=== PATIENT | male | born 1950 | race African-American/Black ===

== ENCOUNTER 2017-10-31 08:43 | Emergency (ER) | payer MEDICARE ==
[2017-10-31 09:25] LABS: ADD MAN DIFF? NO
[2017-10-31 09:32] LABS: BASO % 0 % (0-3); EOS # 0.1 x10^3/uL (0.0-0.7); EOS % 2 % (0-3); HEMATOCRIT 32.6 % (39.0-53.0); HEMOGLOBIN 10.9 g/dL (13.0-17.5); LYMPH # 1.1 x10^3/uL (1.0-4.8); LYMPH % 18 % (24-48); MEAN CORPUSCULAR HEMOGLOBIN 27 pg (25-35); MEAN CORPUSCULAR HGB CONC 33 g/dL (31-37); MEAN CORPUSCULAR VOLUME 81 fL (79-100); MONO # 0.5 x10^3/uL (0.0-1.1); MONO % 9 % (0-9); NEUT # 4.1 x10^3uL (1.8-7.7); NEUT % 71 % (31-73); PLATELET COUNT 345 x10^3/uL (140-400); RED BLOOD COUNT 4.02 x10^6/uL (4.30-5.70); WHITE BLOOD COUNT 5.8 x10^3/uL (4.0-11.0)
[2017-10-31 09:45] LABS: ALBUMIN 3.3 g/dL (3.4-5.0); ALBUMIN/GLOBULIN RATIO 0.9 (1.0-1.7); ALK PHOS 55 U/L (46-116); ALT (SGPT) 22 U/L (16-63); ANION GAP 8 (6-14); AST (SGOT) 21 U/L (15-37); BLOOD UREA NITROGEN 8 mg/dL (8-26); BUN/CREATININE RATIO 7 (6-20); CALCIUM 8.9 mg/dL (8.5-10.1); CARBON DIOXIDE 31 mmol/L (21-32); CHLORIDE 103 mmol/L (98-107); CREATININE 1.1 mg/dL (0.7-1.3); GFR 80.5; GLUCOSE 227 mg/dL (70-99); SODIUM 142 mmol/L (136-145); TOTAL BILIRUBIN 0.3 mg/dL (0.2-1.0); TOTAL PROTEIN 6.9 g/dL (6.4-8.2)
[2017-10-31 09:46] LABS: TROPONINI < 0.017 ng/mL (0.000-0.055)
[2017-10-31 09:50] LABS: POTASSIUM 2.7 mmol/L (3.5-5.1)
[2017-10-31] MEDS: POTASSIUM CHLORIDE 20 MEQ TABLET.ER. PO ×2 (10:28)
== END 2017-10-31 12:47 | disposition home or self-care (01) ==
LOC: ER 08:43
DX: I10 Essential (primary) hypertension (principal); E87.6 Hypokalemia; R94.31 Abnormal electrocardiogram [ECG] [EKG]; E11.9 Type 2 diabetes mellitus without complications; F20.9 Schizophrenia, unspecified
CPT/HCPCS: 36415; 71045; 80053; 84484; 85025; 93005; 99285-25

== ENCOUNTER 2019-10-04 17:32 | Inpatient (IN) | payer MEDICARE, OTHER ==
[~2019-10-04] VITALS: Ht 170.2 cm; Wt 84.4 kg
[2019-10-04] MEDS: IV NORMAL SALINE 1000ML BAG 1,000 ML IV SCH (01:45)
[~2019-10-04 17:32] MED LIST: ACET325T9 PO; AMLO5TAB4 PO; AZIT250T6 PO; BENZ1TAB5 PO; CHOL500016 PO; CHOL500050 PO; GABA300C18 PO; GLIM1TAB PO; HALO10TA PO; HALO2ORA9 PO; HYDR-2868 PO; HYDR12.58 PO; IPRA3AMP29 NEB; LEVO500T59 PO; LINA5TAB PO; LISI20TA PO; MAGN2400 PO; METF10007 PO; NICO1PAT25 TP; NIFE60TA14 PO; OLAN20TA3 PO; POTASSIUM CHLO10 ME1 PO; TRAZ150T49 PO
[2019-10-04] MEDS ORDERED: ONDANSETRON PF 4 MG/2 ML VIAL. IVP ONE (18:15)
[2019-10-04] MEDS ORDERED: IV NORMAL SALINE 1000ML BAG 1,000 ML IV ONE (18:15)
--- NOTE | 2019-10-04 18:53 | PHYS DOC ---
Past Medical History Past Medical History: Constipation, Diabetes-Type II, Hypertension, Schizophrenia, Other Additional Past Medical Histor: INSOMNIA,VIT DEF,EXTRAPYRAMIDAL MOVEMENT,HYPOKALEMIA Past Surgical History: Other Additional Past Surgical Histo: UNKNOWN Additional Information: 0.5 PPD Alcohol Use: None Drug Use: None Adult General Chief Complaint Chief Complaint: NEURO SYMPTOMS/DEFICITS HPI HPI Patient is a 68 year old [facility] patient who presents with reports of right facial droop this morning which resolved and then later this afternoon upon waking from sleep. Patient was reported initially be drooling with facial droop while sleeping per [facility] staff. Patient alert and oriented and oriented without facial droop or complaints extremity weakness or loss of sensation on ED arrival. Denies Patient reports nausea vomiting and diarrhea. Hematemesis coffee-ground emesis. No blood in stools dark tarry stools. No other acute symptoms or complaints.[] Review of Systems Review of Systems ROS as per HPI All other systems were reviewed and found to be within normal limits, except as documented in this note. Current Medications Current Medications Current Medications Medications (Trade) Dose Ordered Sig/Andrés Start Time Stop Time Status Last Admin Dose Admin Ondansetron HCl (Zofran) 4 mg 1X ONCE 10/04/19 18:15 10/04/19 18:24 DC 10/04/19 18:40 4 MG Sodium Chloride 1,000 ml @ 1,000 mls/hr 1X ONCE 10/04/19 18:15 10/04/19 19:14 DC 10/04/19 18:39 1,000 MLS/HR Allergies Allergies Allergies Coded Allergies Type Severity Reaction Last Updated Verified lithium Allergy Intermediate 02/10/19 Yes Physical Exam Physical Exam Constitutional: Postictal/sedated, responds to tactile stimulation. [] HENT: Normocephalic, atraumatic, no acute deficits bilateral external ears no rmal, oropharynx moist, nose normal. [] Eyes: PERRLA, EOMI.. [] Neck: Normal range of motion, no tenderness, supple. [] Cardiovascular:Heart rate regular rhythm, no murmur [] Lungs & Thorax: Bilateral breath sounds clear to auscultation [] Abdomen: Bowel sounds normal, soft. [] Skin: Warm, dry, no erythema, no rash. [] Extremities: No tenderness, no edema. [] Neurologic: Unresponsive, localizes pain. [] Psychologic: Affect normal, judgement normal, mood normal. [] Current Patient Data Vital Signs Vital Signs Date Time Temp Pulse Resp B/P (MAP) Pulse Ox O2 Delivery O2 Flow Rate FiO2 10/04/19 19:01 98 16 96 10/04/19 17:32 98.5 157/74 (101) Room Air 98.5 Lab Values Laboratory Tests Test 10/04/19 14:35 10/04/19 18:55 Influenza Type A Antigen Negative (NEGATIVE) Influenza Type B Antigen Negative (NEGATIVE) White Blood Count 7.2 x10^3/uL (4.0-11.0) Red Blood Count 4.34 x10^6/uL (4.30-5.70) Hemoglobin 11.8 g/dL (13.0-17.5) L Hematocrit 35.8 % (39.0-53.0) L Mean Corpuscular Volume 83 fL (79-100) Mean Corpuscular Hemoglobin 27 pg (25-35) Mean Corpuscular Hemoglobin Concent 33 g/dL (31-37) Red Cell Distribution Width 14.0 % (11.5-14.5) Platelet Count 252 x10^3/uL (140-400) Neutrophils (%) (Auto) 86 % (31-73) H Lymphocytes (%) (Auto) 4 % (24-48) L Monocytes (%) (Auto) 8 % (0-9) Eosinophils (%) (Auto) 2 % (0-3) Basophils (%) (Auto) 0 % (0-3) Neutrophils # (Auto) 6.2 x10^3/uL (1.8-7.7) Lymphocytes # (Auto) 0.3 x10^3/uL (1.0-4.8) L Monocytes # (Auto) 0.6 x10^3/uL (0.0-1.1) Eosinophils # (Auto) 0.1 x10^3/uL (0.0-0.7) Basophils # (Auto) 0.0 x10^3/uL (0.0-0.2) Segmented Neutrophils % 46 % (35-66) Band Neutrophils % 35 % (0-9) H Lymphocytes % 6 % (24-48) L Monocytes % 11 % (0-10) H Eosinophils % 2 % (0-5) Dohle Bodies Present Platelet Estimate Adequate (ADEQUATE) Sodium Level 142 mmol/L (136-145) Potassium Level 3.6 mmol/L (3.5-5.1) Chloride Level 103 mmol/L (98-107) Carbon Dioxide Level 24 mmol/L (21-32) Anion Gap 15 (6-14) H Blood Urea Nitrogen 41 mg/dL (8-26) H Creatinine 3.4 mg/dL (0.7-1.3) H Estimated GFR (Cockcroft-Gault) 21.8 BUN/Creatinine Ratio 12 (6-20) Glucose Level 217 mg/dL (70-99) H Lactic Acid Level 2.6 mmol/L (0.4-2.0) H Calcium Level 8.7 mg/dL (8.5-10.1) Total Bilirubin 0.3 mg/dL (0.2-1.0) Aspartate Amino Transferase (AST) 7 U/L (15-37) L Alanine Aminotransferase (ALT) 13 U/L (16-63) L Alkaline Phosphatase 96 U/L (46-116) Troponin I Quantitative < 0.017 ng/mL (0.000-0.055) Total Protein 7.0 g/dL (6.4-8.2) Albumin 3.3 g/dL (3.4-5.0) L Albumin/Globulin Ratio 0.9 (1.0-1.7) L Lipase 60 U/L (73-393) L Laboratory Tests 10/04/19 18:55 Laboratory Tests 10/04/19 18:55 EKG EKG [EKG: reviewed] Radiology/Procedures Radiology/Procedures [: Course & Med Decision Making Course & Med Decision Making Pertinent Labs and Imaging studies reviewed. (See chart for details) [Nausea vomiting diarrhea with acute kidney injury. IV fluids given. Will admit to the hospital service with anticipated nephrology consult.] Dragon Disclaimer Dragon Disclaimer This electronic medical record was generated, in whole or in part, using a voice recognition dictation system. Departure Departure Impression: Primary Impression: Acute kidney injury Additional Impression: Nausea & vomiting Disposition: ADMITTED INPATIENT Condition: IMPROVED Referrals: DEEDEE DOZIER (PCP) Problem Qualifiers CAITLIN KELLER DO Oct 04, 2019 18:53
[2019-10-04 19:03] LABS: BASO % 0 % (0-3); EOS # 0.1 x10^3/uL (0.0-0.7); EOS % 2 % (0-3); HEMATOCRIT 35.8 % (39.0-53.0); HEMOGLOBIN 11.8 g/dL (13.0-17.5); LYMPH # 0.3 x10^3/uL (1.0-4.8); LYMPH % 4 % (24-48); MEAN CORPUSCULAR HEMOGLOBIN 27 pg (25-35); MEAN CORPUSCULAR HGB CONC 33 g/dL (31-37); MEAN CORPUSCULAR VOLUME 83 fL (79-100); MONO # 0.6 x10^3/uL (0.0-1.1); MONO % 8 % (0-9); NEUT # 6.2 x10^3/uL (1.8-7.7); NEUT % 86 % (31-73); PLATELET COUNT 252 x10^3/uL (140-400); RED BLOOD COUNT 4.34 x10^6/uL (4.30-5.70); WHITE BLOOD COUNT 7.2 x10^3/uL (4.0-11.0)
[2019-10-04 19:25] LABS: PLT ESTIMATE ADEQUATE (ADEQUATE)
[2019-10-04 19:26] LABS: % BANDS 35 % (0-9); % EOS 2 % (0-5); % LYMPHS 6 % (24-48); % MONOS 11 % (0-10); % SEGS 46 % (35-66); ALBUMIN 3.3 g/dL (3.4-5.0); ALBUMIN/GLOBULIN RATIO 0.9 (1.0-1.7); CALCIUM 8.7 mg/dL (8.5-10.1); CREATININE 3.4 mg/dL (0.7-1.3); GFR 21.8; POTASSIUM 3.6 mmol/L (3.5-5.1); TOTAL BILIRUBIN 0.3 mg/dL (0.2-1.0)
[2019-10-04 19:58] LABS: INFLUENZA A PATIENT NEGATIVE (NEGATIVE); INFLUENZA B PATIENT NEGATIVE (NEGATIVE)
[2019-10-04 20:35] VITALS: BP 146/73
[2019-10-04] MEDS ORDERED: ACETAMINOPHEN 500 MG TABLET PO PRN (20:45)
[2019-10-04] MEDS ORDERED: cloNIDine HCL 0.1 MG TABLET PO PRN (20:45)
[2019-10-04] MEDS ORDERED: CALCIUM CARBONATE 500 MG TAB.CHEW PO PRN (20:45)
[2019-10-04] MEDS ORDERED: ACETAMINOPHEN/CODEINE 300/30MG TABLET. PO PRN (20:45)
[2019-10-04] MEDS ORDERED: ACETAMINOPHEN 325 MG TABLET. PO PRN (20:45)
[2019-10-04] MEDS ORDERED: ONDANSETRON PF 4 MG/2 ML VIAL. IVP PRN (20:45)
[2019-10-04] MEDS: traZODone 50 MG TABLET. PO SCH (21:00)
[2019-10-04] MEDS: hydrALAZINE 25 MG TABLET PO SCH (21:00)
[2019-10-04] MEDS: OLANZapine 5 MG TABLET PO SCH (21:00)
[2019-10-04] MEDS: HALOPERIDOL 2 MG/ML ORAL.CONC. PO SCH (21:00)
[2019-10-04] MEDS: IPRATRPIUM/ALBUTEROL 0.5/2.5MG 3 ML NEBU. NEB SCH (21:00)
[2019-10-04] MEDS: GABAPENTIN 300 MG CAPSULE. PO SCH (21:00)
[2019-10-04] MEDS: BENZTROPINE MESYLATE 1 MG TABLET. PO SCH (21:00)
[2019-10-04 23:00] VITALS: BP 118/55
--- NOTE | 2019-10-05 01:46 | NUR ---
Patient admitted to floor from the Emergency Department, report received from Cash SEN, ED. Patient arrived to unit by himself. Patient currently has zero reports of pain at this time. Patient orientated to room and unit, his bed was placed in the lowest position and locked, call light is within reach. 2100 medications non-administered at this time. Medications are currently 5 hours past due. This RN will continue to monitor the patient at this time.
[2019-10-05 03:00] VITALS: BP 117/50
[2019-10-05 05:21] LABS: CALCIUM 8.3 mg/dL (8.5-10.1); CREATININE 3.1 mg/dL (0.7-1.3); GFR 24.3; POTASSIUM 3.4 mmol/L (3.5-5.1)
--- NOTE | 2019-10-05 06:17 | EKG ---
[facility] [address] [place] [address] Test Date: 2019-10-04 Test Time: 17:39:38 Pat Name: PAWAN SONG Department: Room: Gender: M Conservation Agent: : [id number] Requested By: CAITLIN KELLER Order Number: [id number] Reading MD: Measurements Intervals [place] Rate: 99 P: -90 IN: 142 QRS: -49 QRSD: 84 T: 26 QT: 288 QTc: 374 Interpretive Statements SINUS RHYTHM LEFT ATRIAL ABNORMALITY ABNORMAL LEFT AXIS DEVIATION LEFT ANTERIOR FASCICULAR BLOCK NON SPECIFIC T ABNORMALITY ABNORMAL ECG No previous ECG available for comparison
[2019-10-05 07:00] VITALS: BP 142/72
[2019-10-05] MEDS: IPRATRPIUM/ALBUTEROL 0.5/2.5MG 3 ML NEBU. NEB SCH ×5 (08:17→22:00)
[2019-10-05] MEDS ORDERED: NON FORMULARY ITEM (Nifedipine (Nifedipine Er) 60 MG) PO SCH (09:00)
[2019-10-05] MEDS: BENZTROPINE MESYLATE 1 MG TABLET. PO SCH ×2 (09:03→21:00)
[2019-10-05] MEDS: hydrALAZINE 25 MG TABLET PO SCH ×3 (09:03→21:00)
[2019-10-05] MEDS: LISINOPRIL 20 MG TABLET PO SCH (09:04)
[2019-10-05] MEDS: POTASSIUM CHLORIDE 20 MEQ TABLET.ER. PO SCH (09:04)
[2019-10-05] MEDS: hydroCHLOROthiazide 12.5 MG CAPSULE PO SCH (09:04)
[2019-10-05] MEDS: GABAPENTIN 300 MG CAPSULE. PO SCH ×2 (09:04→21:00)
[2019-10-05] MEDS: HALOPERIDOL 2 MG/ML ORAL.CONC. PO SCH ×2 (09:04→21:00)
[2019-10-05] MEDS: NICOTINE 14MG PATCH. TD SCH (09:07)
[2019-10-05] MEDS: amLODIPine BESYLATE 5 MG TABLET PO SCH (09:07)
--- NOTE | 2019-10-05 10:20 | PDOC1 ---
History and Physical Date of Admission Date of Admission DATE: 10/05/19 TIME: 10:20 Identification/Chief Complaint Chief Complaint seen in er 10/04 , 68 year old half-way patient who presents with reports of right facial droop this morning which resolved and then later 10/04 upon waking from sleep. Patient was reported initially be drooling with facial droop while sleeping per half-way staff. Patient alert and oriented and oriented without facial droop or complaints extremity weakness or loss of sensation on ED arrival. Denies Patient reports nausea vomiting and diarrhea. reported Hematemesis coffee-ground emesis. but pt unaware of this, poor historian Past Medical History Past Medical History Past Medical History Past Medical History Past Medical History: Constipation, Diabetes-Type II, Hypertension, Schizophrenia, Other Additional Past Medical Histor: INSOMNIA,VIT DEF,EXTRAPYRAMIDAL MOVEMENT,HYPOKALEMIA Past Surgical History: Other Additional Past Surgical Histo: UNKNOWN Additional Information: 0.5 PPD Alcohol Use: None Drug Use: None fhx htn Cardiovascular: HTN Pulmonary: No pertinent hx CENTRAL NERVOUS SYSTEM: Other GI: No pertinent hx Heme/Onc: No pertinent hx Hepatobiliary: No pertinent hx Psych: Psychosis, Schizophrenia Rheumatologic: No pertinent hx Infectious disease: No pertinent hx Renal/: No pertinent hx Endocrine: Diabetes Past Surgical History Past Surgical History: No pertinent history Family History Family History: Hepatitis, High Cholestrol, Hypertension, Family History Unknown Social History Smoke: <1 pack per day ALCOHOL: none Drugs: None Current Problem List Problem List Problems Medical Problems: (1) Acute kidney injury Status: Acute (2) Nausea & vomiting Status: Acute Current Medications Current Medications Current Medications Sodium Chloride 1,000 ml @ 1,000 mls/hr 1X ONCE IV Last administered on 10/04/19at 18:39; Start 10/04/19 at 18:15; Stop 10/04/19 at 19:14; Status DC Ondansetron HCl (Zofran) 4 mg 1X ONCE IVP Last administered on 10/04/19at 18:40; Start 10/04/19 at 18:15; Stop 10/04/19 at 18:24; Status DC Acetaminophen (Tylenol) 500 mg PRN Q6HRS PRN PO MILD PAIN / TEMP; Start 10/04/19 at 20:45; Status UNV Acetaminophen/ Codeine Phosphate (Tylenol #3) 1 tab PRN Q6HRS PRN PO MODERATE - SEVERE PAIN; Start 10/04/19 at 20:45 Clonidine HCl (Catapres) 0.1 mg PRN Q1HR PRN PO HYPERTENSION; Start 10/04/19 at 20:45 Calcium Carbonate/ Glycine (Tums) 500 mg PRN AFTMEALHC PRN PO INDIGESTION; Start 10/04/19 at 20:45 Ondansetron HCl (Zofran) 4 mg PRN Q6HRS PRN IVP NAUSEA/VOMITING; Start 10/04/19 at 20:45 Sodium Chloride 1,000 ml @ 100 mls/hr Q10H IV Last administered on 10/04/19at 01:45; Start 10/04/19 at 20:45 Acetaminophen (Tylenol) 650 mg PRN Q6HRS PRN PO MILD PAIN / TEMP; Start 10/04/19 at 20:45 Amlodipine Besylate (Norvasc) 5 mg DAILY PO Last administered on 10/05/19at 09:07; Start 10/05/19 at 09:00 Benztropine Mesylate (Cogentin) 1 mg BID PO Last administered on 10/05/19at 09:03; Start 10/04/19 at 21:00 Gabapentin (Neurontin) 300 mg BID PO Last administered on 10/05/19at 09:04; Start 10/04/19 at 21:00 Haloperidol Lactate (HALDOL 2mg ORAL CONC) 7.5 mg BID PO Last administered on 10/05/19at 09:04; Start 10/04/19 at 21:00 Hydralazine HCl (Apresoline) 25 mg TID PO Last administered on 10/05/19at 09:03; Start 10/04/19 at 21:00 Albuterol/ Ipratropium (Duoneb) 3 ml RTQID NEB Last administered on 10/05/19at 08:17; Start 10/04/19 at 21:00 Lisinopril (Prinivil) 60 mg DAILY PO Last administered on 10/05/19at 09:04; Start 10/05/19 at 09:00 Nicotine (Nicoderm Cq 14mg) 1 patch DAILY TD Last administered on 10/05/19at 09:07; Start 10/05/19 at 09:00 Ergocalciferol (Vitamin D2) 50,000 unit WEEKLY PO ; Start 10/11/19 at 09:00 Hydrochlorothiazide (Microzide) 12.5 mg DAILY PO Last administered on 10/05/19at 09:04; Start 10/05/19 at 09:00 Non-Formulary Medication (Nifedipine (Nifedipine Er)) 60 mg DAILY PO ; Start 10/05/19 at 09:00; Status UNV Olanzapine (ZyPREXA) 20 mg QHS PO ; Start 10/04/19 at 21:00 Potassium Chloride (Klor-Con) 20 meq DAILYWBKFT PO Last administered on 10/05/19at 09:04; Start 10/05/19 at 08:00 Trazodone HCl (Desyrel) 150 mg QHS PO ; Start 10/04/19 at 21:00 Active Scripts Active Levaquin (Levofloxacin) 500 Mg Tablet 1 Tab PO DAILY Azithromycin Tablet (Azithromycin) 250 Mg Tablet 250 Mg PO HS Duoneb 0.5-3(2.5) Mg/3 Ml (Albuterol/Ipratropium) 3 Ml Ampul.neb 3 Ml NEB RTQID Reported Vitamin D3 (Cholecalciferol (Vitamin D3)) 50,000 Unit Capsule 50,000 Unit PO WEEKLY Tylenol (Acetaminophen) 325 Mg Tablet 650 Mg PO PRN Q6HRS PRN NICODERM CQ 14mg (Nicotine) 1 Each Patch.td24 1 Patch TP DAILY Gabapentin (Gabapentin) 300 Mg Capsule 300 Mg PO BID Haloperidol Lactate 2 Mg/1 Ml Oral.conc 7.5 Mg PO BID Zyprexa (Olanzapine) 20 Mg Tablet 1 Tab PO QHS Trazodone Hcl 150 Mg Tablet 1 Tab PO QHS Potassium Chloride 10 Meq Tablet.er 20 Meq PO DAILY Norvasc (Amlodipine Besylate) 5 Mg Tablet 5 Mg PO DAILY Nifedipine Er (Nifedipine) 60 Mg Tablet.er 60 Mg PO DAILY Milk Of Magnesia (Magnesium Hydroxide) 2,400 Mg/10 Ml Oral.susp 1,200 Mg PO PRN DAILY PRN Prinivil (Lisinopril) 20 Mg Tablet 60 Mg PO DAILY Hydrochlorothiazide Tablet (Hydrochlorothiazide) 12.5 Mg Tablet 12.5 Mg PO DAILY Hydralazine Hcl 25 Mg Tablet 25 Mg PO TID Benztropine Mesylate 1 Mg Tablet 1 Mg PO BID Allergies Allergies: Coded Allergies: lithium (Verified Allergy, Intermediate, 02/10/19) ROS Review of System Review of Systems Review of Systems ROS as per HPI 14 pt systems were reviewed and found to be within normal limits, except as documented General: YES: Fatigue Gastrointestinal: Yes Nausea, Yes Vomiting Musculoskeletal: Yes Joint Stiffness Physical Exam Physical Exam Physical Exam Physical Exam Constitutional: [] HENT: Normocephalic, atraumatic, no acute deficits bilateral external ears normal, oropharynx moist, nose normal. [] Eyes: PERRLA, EOMI.. [] Neck: Normal range of motion, no tenderness, supple. [] Cardiovascular:Heart rate regular rhythm, no murmur [] Lungs & Thorax: Bilateral breath sounds clear to auscultation [] Abdomen: Bowel sounds normal, soft. [] Skin: Warm, dry, no erythema, no rash. [] Extremities: No tenderness, no edema. [] Neurologic: Unresponsive, localizes pain. [] Psychologic: Affect normal, judgment normal, mood normal. [] General: Cooperative, No acute distress HEENT: Atraumatic Breasts: Not examined Abdomen: Normal bowel sounds, Soft, No tenderness Rectal Exam: not examined PELVIC: Exam declined by patient, Examination not indicated Extremities: No clubbing, No cyanosis Vitals Vitals Vital Signs Date Time Temp Pulse Resp B/P (MAP) Pulse Ox O2 Delivery O2 Flow Rate FiO2 10/05/19 09:07 98 142/72 10/05/19 08:19 93 Room Air 10/05/19 07:00 98.3 16 98.3 Labs Labs Laboratory Tests Test 10/04/19 14:35 10/04/19 18:55 10/04/19 21:55 10/05/19 03:50 Influenza Type A Antigen Negative (NEGATIVE) Influenza Type B Antigen Negative (NEGATIVE) White Blood Count 7.2 x10^3/uL (4.0-11.0) Red Blood Count 4.34 x10^6/uL (4.30-5.70) Hemoglobin 11.8 g/dL (13.0-17.5) Hematocrit 35.8 % (39.0-53.0) Mean Corpuscular Volume 83 fL (79-100) Mean Corpuscular Hemoglobin 27 pg (25-35) Mean Corpuscular Hemoglobin Concent 33 g/dL (31-37) Red Cell Distribution Width 14.0 % (11.5-14.5) Platelet Count 252 x10^3/uL (140-400) Neutrophils (%) (Auto) 86 % (31-73) Lymphocytes (%) (Auto) 4 % (24-48) Monocytes (%) (Auto) 8 % (0-9) Eosinophils (%) (Auto) 2 % (0-3) Basophils (%) (Auto) 0 % (0-3) Neutrophils # (Auto) 6.2 x10^3/uL (1.8-7.7) Lymphocytes # (Auto) 0.3 x10^3/uL (1.0-4.8) Monocytes # (Auto) 0.6 x10^3/uL (0.0-1.1) Eosinophils # (Auto) 0.1 x10^3/uL (0.0-0.7) Basophils # (Auto) 0.0 x10^3/uL (0.0-0.2) Segmented Neutrophils % 46 % (35-66) Band Neutrophils % 35 % (0-9) Lymphocytes % 6 % (24-48) Monocytes % 11 % (0-10) Eosinophils % 2 % (0-5) Dohle Bodies Present Platelet Estimate Adequate (ADEQUATE) Sodium Level 142 mmol/L (136-145) 143 mmol/L (136-145) Potassium Level 3.6 mmol/L (3.5-5.1) 3.4 mmol/L (3.5-5.1) Chloride Level 103 mmol/L (98-107) 108 mmol/L (98-107) Carbon Dioxide Level 24 mmol/L (21-32) 23 mmol/L (21-32) Anion Gap 15 (6-14) 12 (6-14) Blood Urea Nitrogen 41 mg/dL (8-26) 39 mg/dL (8-26) Creatinine 3.4 mg/dL (0.7-1.3) 3.1 mg/dL (0.7-1.3) Estimated GFR (Cockcroft-Gault) 21.8 24.3 BUN/Creatinine Ratio 12 (6-20) Glucose Level 217 mg/dL (70-99) 120 mg/dL (70-99) Lactic Acid Level 2.6 mmol/L (0.4-2.0) 2.0 mmol/L (0.4-2.0) 1.1 mmol/L (0.4-2.0) Calcium Level 8.7 mg/dL (8.5-10.1) 8.3 mg/dL (8.5-10.1) Total Bilirubin 0.3 mg/dL (0.2-1.0) Aspartate Amino Transf (AST/SGOT) 7 U/L (15-37) Alanine Aminotransferase (ALT/SGPT) 13 U/L (16-63) Alkaline Phosphatase 96 U/L (46-116) Troponin I Quantitative < 0.017 ng/mL (0.000-0.055) Total Protein 7.0 g/dL (6.4-8.2) Albumin 3.3 g/dL (3.4-5.0) Albumin/Globulin Ratio 0.9 (1.0-1.7) Lipase 60 U/L (73-393) Laboratory Tests Test 10/04/19 14:35 10/04/19 18:55 10/04/19 21:55 10/05/19 03:50 Influenza Type A Antigen Negative (NEGATIVE) Influenza Type B Antigen Negative (NEGATIVE) White Blood Count 7.2 x10^3/uL (4.0-11.0) Red Blood Count 4.34 x10^6/uL (4.30-5.70) Hemoglobin 11.8 g/dL (13.0-17.5) Hematocrit 35.8 % (39.0-53.0) Mean Corpuscular Volume 83 fL (79-100) Mean Corpuscular Hemoglobin 27 pg (25-35) Mean Corpuscular Hemoglobin Concent 33 g/dL (31-37) Red Cell Distribution Width 14.0 % (11.5-14.5) Platelet Count 252 x10^3/uL (140-400) Neutrophils (%) (Auto) 86 % (31-73) Lymphocytes (%) (Auto) 4 % (24-48) Monocytes (%) (Auto) 8 % (0-9) Eosinophils (%) (Auto) 2 % (0-3) Basophils (%) (Auto) 0 % (0-3) Neutrophils # (Auto) 6.2 x10^3/uL (1.8-7.7) Lymphocytes # (Auto) 0.3 x10^3/uL (1.0-4.8) Monocytes # (Auto) 0.6 x10^3/uL (0.0-1.1) Eosinophils # (Auto) 0.1 x10^3/uL (0.0-0.7) Basophils # (Auto) 0.0 x10^3/uL (0.0-0.2) Segmented Neutrophils % 46 % (35-66) Band Neutrophils % 35 % (0-9) Lymphocytes % 6 % (24-48) Monocytes % 11 % (0-10) Eosinophils % 2 % (0-5) Dohle Bodies Present Platelet Estimate Adequate (ADEQUATE) Sodium Level 142 mmol/L (136-145) 143 mmol/L (136-145) Potassium Level 3.6 mmol/L (3.5-5.1) 3.4 mmol/L (3.5-5.1) Chloride Level 103 mmol/L (98-107) 108 mmol/L (98-107) Carbon Dioxide Level 24 mmol/L (21-32) 23 mmol/L (21-32) Anion Gap 15 (6-14) 12 (6-14) Blood Urea Nitrogen 41 mg/dL (8-26) 39 mg/dL (8-26) Creatinine 3.4 mg/dL (0.7-1.3) 3.1 mg/dL (0.7-1.3) Estimated GFR (Cockcroft-Gault) 21.8 24.3 BUN/Creatinine Ratio 12 (6-20) Glucose Level 217 mg/dL (70-99) 120 mg/dL (70-99) Lactic Acid Level 2.6 mmol/L (0.4-2.0) 2.0 mmol/L (0.4-2.0) 1.1 mmol/L (0.4-2.0) Calcium Level 8.7 mg/dL (8.5-10.1) 8.3 mg/dL (8.5-10.1) Total Bilirubin 0.3 mg/dL (0.2-1.0) Aspartate Amino Transf (AST/SGOT) 7 U/L (15-37) Alanine Aminotransferase (ALT/SGPT) 13 U/L (16-63) Alkaline Phosphatase 96 U/L (46-116) Troponin I Quantitative < 0.017 ng/mL (0.000-0.055) Total Protein 7.0 g/dL (6.4-8.2) Albumin 3.3 g/dL (3.4-5.0) Albumin/Globulin Ratio 0.9 (1.0-1.7) Lipase 60 U/L (73-393) Images Images ADDENDUM Addendum: Although the evaluation of eden is limited due to lack of IV contrast there is suggestion of a left suprahilar soft tissue mass measuring 1.[address] chest with IV contrast is recommended. In this context the interstitial opacities in the left upper lobe although may be inflammatory or infectious, lymphangitic spread is not ruled out. Also in consideration is post radiation changes if there is history of prior radiation. Electronically signed by: Kev Rm DO (05/26/2019 11:26 AM) [facility] DICTATED AND SIGNED BY: KEV RM DO DATE: 05/26/19 1126 CC: BUTCH WYNN III, DO; YO MENDEZ MD; MILLER JONES MD; DEEDEE DOZIER ~ RS Compliance statement: One or more of the following individualized dose reduction techniques were utilized for this examination: 1. Automated exposure control. 2. Adjustment of the mA and/or kV according to patient size. 3. Use of iterative reconstruction technique. Indication:Pneumonia. TECHNIQUE: CT chest without IV contrast with multiplanar reformats. COMPARISON:None FINDINGS: Heart is normal in size. No pericardial or pleural effusion. No enlarged axillary lymph nodes. Mildly enlarged mediastinal lymph node seen measuring 1.3 x 1.3 cm. Evaluation of hilar lymphadenopathy is limited due to lack of IV contrast. Interstitial opacities are seen in the left upper lobe. Rest of the lungs are clear. Visualized noncontrast sections through the liver, spleen within normal limits. No suspicious bony lesion. IMPRESSION: Left upper lobe interstitial opacities suggests infectious process. Follow-up imaging recommended after medical therapy to ensure resolution. Electronically signed by: Kev Rm DO (05/25/2019 2:22 PM) [facility] VTE Prophylaxis Ordered VTE Prophylaxis Devices: No VTE Pharmacological Prophylaxi: Yes Assessment/Plan Assessment/Plan Impression: Acute kidney injury DIABETES HYPERTENSION UGI BLEED Nausea & vomiting, intractable anemia Severe weakness hx schizophrenia tobacco abuse disorder 06/04 Mildly enlarged mediastinal lymph node seen measuring 1.3 x 1.3 cm ADMITTED gi consult nephrology consult iv protonix iv fluid support frequent labs scd's dvt prophylaxis 75 min pt exam, chart review, > 50% of time spent with exam, chart review, pt care coordination KAMILA CAVANAUGH MD Oct 05, 2019 10:20
[2019-10-05 11:00] VITALS: BP 164/70
--- NOTE | 2019-10-05 13:03 | NUR ---
AMANDA following. Discussed with RN. AMANDA verified pt is a resident at [facility] (ph: [phone], fax: [phone]). SW to fax updates when available.
[2019-10-05] MEDS: IV NORMAL SALINE 1000ML BAG 1,000 ML IV SCH ×2 (13:08→21:42)
[2019-10-05] MEDS ORDERED: ONDANSETRON PF 4 MG/2 ML VIAL. IV PRN (13:15)
[2019-10-05] MEDS ORDERED: 0.9 % SODIUM CHLORIDE 10 ML DISP.SYRIN. IV PRN (13:15)
[2019-10-05] MEDS ORDERED: ACETAMINOPHEN 325 MG TABLET. PO PRN (13:15)
[2019-10-05] MEDS ORDERED: guaiFENesin ORAL 200 MG/10 ML LIQUID. PO PRN (13:15)
[2019-10-05] MEDS ORDERED: cloNIDine HCL 0.1 MG TABLET PO PRN (13:15)
[2019-10-05] MEDS ORDERED: DOCUSATE SODIUM 100 MG CAPSULE. PO PRN (13:15)
[2019-10-05] MEDS ORDERED: LORazepam 0.5 MG TABLET PO PRN (13:15)
[2019-10-05] MEDS ORDERED: MAG HYDROX/ALUMINUM HYD/SIMETH 30 ML ORAL.SUSP PO PRN (13:15)
[2019-10-05 13:16] LABS: BASO % 1 % (0-3); EOS # 0.4 x10^3/uL (0.0-0.7); EOS % 7 % (0-3); HEMATOCRIT 32.8 % (39.0-53.0); HEMOGLOBIN 10.6 g/dL (13.0-17.5); LYMPH # 0.7 x10^3/uL (1.0-4.8); LYMPH % 13 % (24-48); MEAN CORPUSCULAR HEMOGLOBIN 27 pg (25-35); MEAN CORPUSCULAR HGB CONC 32 g/dL (31-37); MEAN CORPUSCULAR VOLUME 84 fL (79-100); MONO # 0.7 x10^3/uL (0.0-1.1); MONO % 12 % (0-9); NEUT # 3.8 x10^3/uL (1.8-7.7); NEUT % 67 % (31-73); PLATELET COUNT 243 x10^3/uL (140-400); RED BLOOD COUNT 3.91 x10^6/uL (4.30-5.70); RED CELL DISTRIBUTION WIDTH 13.9 % (11.5-14.5); WHITE BLOOD COUNT 5.7 x10^3/uL (4.0-11.0)
[2019-10-05] MEDS: PANTOPRAZOLE IV PUSH 40 MG VIAL. IVP SCH (13:57)
--- NOTE | 2019-10-05 14:26 | PDOC2 ---
CONSULT Date of Consult Date of Consult DATE: 10/05/19 TIME: 14:15 Reason for Consult Reason for Consult: ALICIA Identification/Chief Complaint Chief Complaint Poor Historian, denies any complaints Source Source: Chart review History of Present Illness Reason for Visit: Pt is a poor historian- Hx obtained from Chart review(Dr. Rceio's note) seen in er 10/04 He is 68 year AA MALE custodial patient who presents with reports of right facial droop Patient was reported initially be drooling with facial droop while sleeping per custodial staff. Pt denies any nausea vomiting and diarrhea. Reported Hematemesis coffee-ground emesis per Primary's note . Pt denies any urinary symptoms Pt has been seen by Neurology , MRI has been ordered Past Medical History Cardiovascular: HTN Pulmonary: No pertinent hx CENTRAL NERVOUS SYSTEM: Other GI: No pertinent hx Heme/Onc: No pertinent hx Hepatobiliary: No pertinent hx Psych: Psychosis, Schizophrenia Rheumatologic: No pertinent hx Infectious disease: No pertinent hx Renal/: No pertinent hx Endocrine: Diabetes Past Surgical History Past Surgical History: No pertinent history Family History Family History: Hepatitis, High Cholestrol, Hypertension, Family History Unknown Social History <1 pack per day ALCOHOL: none Drugs: None Lives: Shelter Current Problem List Problem List Problems Medical Problems: (1) Acute kidney injury Status: Acute (2) Nausea & vomiting Status: Acute Current Medications Current Medications Current Medications Sodium Chloride 1,000 ml @ 1,000 mls/hr 1X ONCE IV Last administered on 10/04/19at 18:39; Start 10/04/19 at 18:15; Stop 10/04/19 at 19:14; Status DC Ondansetron HCl (Zofran) 4 mg 1X ONCE IVP Last administered on 10/04/19at 18:40; Start 10/04/19 at 18:15; Stop 10/04/19 at 18:24; Status DC Acetaminophen (Tylenol) 500 mg PRN Q6HRS PRN PO MILD PAIN / TEMP; Start 10/04/19 at 20:45; Status UNV Acetaminophen/ Codeine Phosphate (Tylenol #3) 1 tab PRN Q6HRS PRN PO MODERATE - SEVERE PAIN; Start 10/04/19 at 20:45 Clonidine HCl (Catapres) 0.1 mg PRN Q1HR PRN PO HYPERTENSION; Start 10/04/19 at 20:45; Stop 10/05/19 at 13:13; Status DC Calcium Carbonate/ Glycine (Tums) 500 mg PRN AFTMEALHC PRN PO INDIGESTION; Start 10/04/19 at 20:45 Ondansetron HCl (Zofran) 4 mg PRN Q6HRS PRN IVP NAUSEA/VOMITING; Start 10/04/19 at 20:45; Stop 10/05/19 at 13:12; Status DC Sodium Chloride 1,000 ml @ 100 mls/hr Q10H IV Last administered on 10/05/19at 13:08; Start 10/04/19 at 20:45 Acetaminophen (Tylenol) 650 mg PRN Q6HRS PRN PO MILD PAIN / TEMP; Start 10/04/19 at 20:45; Stop 10/05/19 at 13:11; Status DC Amlodipine Besylate (Norvasc) 5 mg DAILY PO Last administered on 10/05/19at 09:07; Start 10/05/19 at 09:00 Benztropine Mesylate (Cogentin) 1 mg BID PO Last administered on 10/05/19at 09:03; Start 10/04/19 at 21:00 Gabapentin (Neurontin) 300 mg BID PO Last administered on 10/05/19at 09:04; Start 10/04/19 at 21:00 Haloperidol Lactate (HALDOL 2mg ORAL CONC) 7.5 mg BID PO Last administered on 10/05/19at 09:04; Start 10/04/19 at 21:00 Hydralazine HCl (Apresoline) 25 mg TID PO Last administered on 10/05/19at 13:57; Start 10/04/19 at 21:00 Albuterol/ Ipratropium (Duoneb) 3 ml RTQID NEB Last administered on 10/05/19at 11:38; Start 10/04/19 at 21:00; Stop 10/05/19 at 13:10; Status DC Lisinopril (Prinivil) 60 mg DAILY PO Last administered on 10/05/19at 09:04; Start 10/05/19 at 09:00 Nicotine (Nicoderm Cq 14mg) 1 patch DAILY TD Last administered on 10/05/19at 09:07; Start 10/05/19 at 09:00 Ergocalciferol (Vitamin D2) 50,000 unit WEEKLY PO ; Start 10/11/19 at 09:00 Hydrochlorothiazide (Microzide) 12.5 mg DAILY PO Last administered on 10/05/19at 09:04; Start 10/05/19 at 09:00 Non-Formulary Medication (Nifedipine (Nifedipine Er)) 60 mg DAILY PO ; Start 10/05/19 at 09:00; Status UNV Olanzapine (ZyPREXA) 20 mg QHS PO ; Start 10/04/19 at 21:00 Potassium Chloride (Klor-Con) 20 meq DAILYWBKFT PO Last administered on 10/05/19at 09:04; Start 10/05/19 at 08:00 Trazodone HCl (Desyrel) 150 mg QHS PO ; Start 10/04/19 at 21:00 Pantoprazole Sodium (PROTONIX VIAL for IV PUSH) 40 mg DAILYAC IVP Last administered on 10/05/19at 13:57; Start 10/05/19 at 14:00 Sodium Chloride (Normal Saline Flush) 3 ml QSHIFT PRN IV AFTER MEDS AND BLOOD DRAWS; Start 10/05/19 at 13:15 Ondansetron HCl (Zofran) 4 mg PRN Q4HRS PRN IV NAUSEA/VOMITING; Start 10/05/19 at 13:15 Acetaminophen (Tylenol) 650 mg PRN Q4HRS PRN PO TEMP OVER 100.4F OR MILD PAIN; Start 10/05/19 at 13:15 Al Hydroxide/Mg Hydroxide (Mylanta Plus Xs) 30 ml PRN DAILY PRN PO HEARTBURN / GAS; Start 10/05/19 at 13:15 Clonidine HCl (Catapres) 0.1 mg PRN Q6HRS PRN PO SBP>160 OR DBP>90; Start 10/05/19 at 13:15 Docusate Sodium (Colace) 100 mg PRN BID PRN PO CONSTIPATION; Start 10/05/19 at 13:15 Albuterol/ Ipratropium (Duoneb) 3 ml Q4H NEB ; Start 10/05/19 at 14:00 Guaifenesin (Robitussin) 200 mg PRN Q4HRS PRN PO COUGH; Start 10/05/19 at 13:15 Lorazepam (Ativan) 0.5 mg PRN Q4HRS PRN PO ANXIETY / AGITATION; Start 10/05/19 at 13:15 Active Scripts Active Levaquin (Levofloxacin) 500 Mg Tablet 1 Tab PO DAILY Azithromycin Tablet (Azithromycin) 250 Mg Tablet 250 Mg PO HS Duoneb 0.5-3(2.5) Mg/3 Ml (Albuterol/Ipratropium) 3 Ml Ampul.neb 3 Ml NEB RTQID Reported Vitamin D3 (Cholecalciferol (Vitamin D3)) 50,000 Unit Capsule 50,000 Unit PO WEEKLY Tylenol (Acetaminophen) 325 Mg Tablet 650 Mg PO PRN Q6HRS PRN NICODERM CQ 14mg (Nicotine) 1 Each Patch.td24 1 Patch TP DAILY Gabapentin (Gabapentin) 300 Mg Capsule 300 Mg PO BID Haloperidol Lactate 2 Mg/1 Ml Oral.conc 7.5 Mg PO BID Zyprexa (Olanzapine) 20 Mg Tablet 1 Tab PO QHS Trazodone Hcl 150 Mg Tablet 1 Tab PO QHS Potassium Chloride 10 Meq Tablet.er 20 Meq PO DAILY Norvasc (Amlodipine Besylate) 5 Mg Tablet 5 Mg PO DAILY Nifedipine Er (Nifedipine) 60 Mg Tablet.er 60 Mg PO DAILY Milk Of Magnesia (Magnesium Hydroxide) 2,400 Mg/10 Ml Oral.susp 1,200 Mg PO PRN DAILY PRN Prinivil (Lisinopril) 20 Mg Tablet 60 Mg PO DAILY Hydrochlorothiazide Tablet (Hydrochlorothiazide) 12.5 Mg Tablet 12.5 Mg PO DAILY Hydralazine Hcl 25 Mg Tablet 25 Mg PO TID Benztropine Mesylate 1 Mg Tablet 1 Mg PO BID Allergies Allergies: Coded Allergies: lithium (Verified Allergy, Intermediate, 02/10/19) ROS Review of System Unable to obtain, poor historian, says no for all ros questions Physical Exam Physical Exam General: No acute distress HEENT: OM moist Neck Supple Lungs- CTA , No use of accessory muscles CV RRR Abdomen: Soft, No tenderness Skin No rash Neuro- defer to Neurologist Extremities: No edema - o CVA or SP tenderness, No Bains Vital Signs Vital Signs Date Time Temp Pulse Resp B/P (MAP) Pulse Ox O2 Delivery O2 Flow Rate FiO2 10/05/19 13:57 93 164/70 10/05/19 11:39 93 Room Air 10/05/19 11:00 98.3 18 98.3 Assessment & Plan ALICIA - Baseline Cr normal 05/27/2019 Etiology suspect Pre-renal UA pending, Ordered Renal US E-Lytes and acid base stable, Supportive care, IVF,strict I/O, Avoid nephrotoxins Facial droop - Neuro consulted MRI ordered by Neuro Hypokalemia- mild, replace as needed Anemia- per primary HTN- antihypertensives per primary Avoid CHARLEE-/ARB /diuretics UGI BLeed- hematemesis per chart review, GI consulted Pedro RN, no family at bedside Labs Labs Laboratory Tests Test 10/04/19 14:35 10/04/19 18:55 10/04/19 21:55 10/05/19 03:50 Influenza Type A Antigen Negative (NEGATIVE) Influenza Type B Antigen Negative (NEGATIVE) White Blood Count 7.2 x10^3/uL (4.0-11.0) 5.7 x10^3/uL (4.0-11.0) Red Blood Count 4.34 x10^6/uL (4.30-5.70) 3.91 x10^6/uL (4.30-5.70) Hemoglobin 11.8 g/dL (13.0-17.5) 10.6 g/dL (13.0-17.5) Hematocrit 35.8 % (39.0-53.0) 32.8 % (39.0-53.0) Mean Corpuscular Volume 83 fL (79-100) 84 fL (79-100) Mean Corpuscular Hemoglobin 27 pg (25-35) 27 pg (25-35) Mean Corpuscular Hemoglobin Concent 33 g/dL (31-37) 32 g/dL (31-37) Red Cell Distribution Width 14.0 % (11.5-14.5) 13.9 % (11.5-14.5) Platelet Count 252 x10^3/uL (140-400) 243 x10^3/uL (140-400) Neutrophils (%) (Auto) 86 % (31-73) 67 % (31-73) Lymphocytes (%) (Auto) 4 % (24-48) 13 % (24-48) Monocytes (%) (Auto) 8 % (0-9) 12 % (0-9) Eosinophils (%) (Auto) 2 % (0-3) 7 % (0-3) Basophils (%) (Auto) 0 % (0-3) 1 % (0-3) Neutrophils # (Auto) 6.2 x10^3/uL (1.8-7.7) 3.8 x10^3/uL (1.8-7.7) Lymphocytes # (Auto) 0.3 x10^3/uL (1.0-4.8) 0.7 x10^3/uL (1.0-4.8) Monocytes # (Auto) 0.6 x10^3/uL (0.0-1.1) 0.7 x10^3/uL (0.0-1.1) Eosinophils # (Auto) 0.1 x10^3/uL (0.0-0.7) 0.4 x10^3/uL (0.0-0.7) Basophils # (Auto) 0.0 x10^3/uL (0.0-0.2) 0.0 x10^3/uL (0.0-0.2) Segmented Neutrophils % 46 % (35-66) Band Neutrophils % 35 % (0-9) Lymphocytes % 6 % (24-48) Monocytes % 11 % (0-10) Eosinophils % 2 % (0-5) Dohle Bodies Present Platelet Estimate Adequate (ADEQUATE) Sodium Level 142 mmol/L (136-145) 143 mmol/L (136-145) Potassium Level 3.6 mmol/L (3.5-5.1) 3.4 mmol/L (3.5-5.1) Chloride Level 103 mmol/L (98-107) 108 mmol/L (98-107) Carbon Dioxide Level 24 mmol/L (21-32) 23 mmol/L (21-32) Anion Gap 15 (6-14) 12 (6-14) Blood Urea Nitrogen 41 mg/dL (8-26) 39 mg/dL (8-26) Creatinine 3.4 mg/dL (0.7-1.3) 3.1 mg/dL (0.7-1.3) Estimated GFR (Cockcroft-Gault) 21.8 24.3 BUN/Creatinine Ratio 12 (6-20) Glucose Level 217 mg/dL (70-99) 120 mg/dL (70-99) Lactic Acid Level 2.6 mmol/L (0.4-2.0) 2.0 mmol/L (0.4-2.0) 1.1 mmol/L (0.4-2.0) Calcium Level 8.7 mg/dL (8.5-10.1) 8.3 mg/dL (8.5-10.1) Total Bilirubin 0.3 mg/dL (0.2-1.0) Aspartate Amino Transf (AST/SGOT) 7 U/L (15-37) Alanine Aminotransferase (ALT/SGPT) 13 U/L (16-63) Alkaline Phosphatase 96 U/L (46-116) Troponin I Quantitative < 0.017 ng/mL (0.000-0.055) Total Protein 7.0 g/dL (6.4-8.2) Albumin 3.3 g/dL (3.4-5.0) Albumin/Globulin Ratio 0.9 (1.0-1.7) Lipase 60 U/L (73-393) Laboratory Tests Test 10/04/19 14:35 10/04/19 18:55 10/04/19 21:55 10/05/19 03:50 Influenza Type A Antigen Negative (NEGATIVE) Influenza Type B Antigen Negative (NEGATIVE) White Blood Count 7.2 x10^3/uL (4.0-11.0) 5.7 x10^3/uL (4.0-11.0) Red Blood Count 4.34 x10^6/uL (4.30-5.70) 3.91 x10^6/uL (4.30-5.70) Hemoglobin 11.8 g/dL (13.0-17.5) 10.6 g/dL (13.0-17.5) Hematocrit 35.8 % (39.0-53.0) 32.8 % (39.0-53.0) Mean Corpuscular Volume 83 fL (79-100) 84 fL (79-100) Mean Corpuscular Hemoglobin 27 pg (25-35) 27 pg (25-35) Mean Corpuscular Hemoglobin Concent 33 g/dL (31-37) 32 g/dL (31-37) Red Cell Distribution Width 14.0 % (11.5-14.5) 13.9 % (11.5-14.5) Platelet Count 252 x10^3/uL (140-400) 243 x10^3/uL (140-400) Neutrophils (%) (Auto) 86 % (31-73) 67 % (31-73) Lymphocytes (%) (Auto) 4 % (24-48) 13 % (24-48) Monocytes (%) (Auto) 8 % (0-9) 12 % (0-9) Eosinophils (%) (Auto) 2 % (0-3) 7 % (0-3) Basophils (%) (Auto) 0 % (0-3) 1 % (0-3) Neutrophils # (Auto) 6.2 x10^3/uL (1.8-7.7) 3.8 x10^3/uL (1.8-7.7) Lymphocytes # (Auto) 0.3 x10^3/uL (1.0-4.8) 0.7 x10^3/uL (1.0-4.8) Monocytes # (Auto) 0.6 x10^3/uL (0.0-1.1) 0.7 x10^3/uL (0.0-1.1) Eosinophils # (Auto) 0.1 x10^3/uL (0.0-0.7) 0.4 x10^3/uL (0.0-0.7) Basophils # (Auto) 0.0 x10^3/uL (0.0-0.2) 0.0 x10^3/uL (0.0-0.2) Segmented Neutrophils % 46 % (35-66) Band Neutrophils % 35 % (0-9) Lymphocytes % 6 % (24-48) Monocytes % 11 % (0-10) Eosinophils % 2 % (0-5) Dohle Bodies Present Platelet Estimate Adequate (ADEQUATE) Sodium Level 142 mmol/L (136-145) 143 mmol/L (136-145) Potassium Level 3.6 mmol/L (3.5-5.1) 3.4 mmol/L (3.5-5.1) Chloride Level 103 mmol/L (98-107) 108 mmol/L (98-107) Carbon Dioxide Level 24 mmol/L (21-32) 23 mmol/L (21-32) Anion Gap 15 (6-14) 12 (6-14) Blood Urea Nitrogen 41 mg/dL (8-26) 39 mg/dL (8-26) Creatinine 3.4 mg/dL (0.7-1.3) 3.1 mg/dL (0.7-1.3) Estimated GFR (Cockcroft-Gault) 21.8 24.3 BUN/Creatinine Ratio 12 (6-20) Glucose Level 217 mg/dL (70-99) 120 mg/dL (70-99) Lactic Acid Level 2.6 mmol/L (0.4-2.0) 2.0 mmol/L (0.4-2.0) 1.1 mmol/L (0.4-2.0) Calcium Level 8.7 mg/dL (8.5-10.1) 8.3 mg/dL (8.5-10.1) Total Bilirubin 0.3 mg/dL (0.2-1.0) Aspartate Amino Transf (AST/SGOT) 7 U/L (15-37) Alanine Aminotransferase (ALT/SGPT) 13 U/L (16-63) Alkaline Phosphatase 96 U/L (46-116) Troponin I Quantitative < 0.017 ng/mL (0.000-0.055) Total Protein 7.0 g/dL (6.4-8.2) Albumin 3.3 g/dL (3.4-5.0) Albumin/Globulin Ratio 0.9 (1.0-1.7) Lipase 60 U/L (73-393) Review All relevant outside records, renal labs, imaging studies, telemetry/EKG's were reviewed. PEYMAN CORTES MD Oct 05, 2019 14:26
--- NOTE | 2019-10-05 14:31 | NUR ---
Patient refused to go to CT or MRI after I repeatedly explained to him the importance of letting us treat him. I explained to him that the doctors would not have ordered these procedures if they didn't think it was needed. He just kept stating, "I don't think it's necessary, I'll take my chances."
[2019-10-05 15:00] VITALS: BP 162/72
--- NOTE | 2019-10-05 16:58 | PDOC2 ---
NEUROLOGY CONSULT Date of Admission Date of Admission DATE: 10/05/19 TIME: 16:45 Reason for Consult Reason for Consult: IMPRESSION: Recurrent right side facial drooping x 2 times since 10/04/19. Metabolic encephalopathy. DM. HTN. ALICIA. Schizophrenia. RECOMMENDATIONS/PLAN: ASA 325 mg daily. Lipitor HS. Lab: see orders. Lipid panel pending. Brain MRI w/o contrast, patient declined it. HCT. Treat medical diseases. History of Present Illness This is a 68-year-old AA male care home patient who was brought inti the ER of [facility] with reports of right facial drooping with some mental status changes. He was reported initially be drooling with facial droop while sleeping per care home staff. Reported Hematemesis coffee-ground emesis per Primary's note. His f acial drooping was then not evident but recurrent once afterwards. No symptoms of sensory or motor deficits. Past Medical History Cardiovascular: HTN Pulmonary: No pertinent hx CENTRAL NERVOUS SYSTEM: Other GI: No pertinent hx Heme/Onc: No pertinent hx Hepatobiliary: No pertinent hx Psych: Psychosis, Schizophrenia Rheumatologic: No pertinent hx Infectious disease: No pertinent hx Renal/: No pertinent hx Endocrine: Diabetes Past Surgical History No pertinent history Family History Hepatitis, High Cholestrol, Hypertension, Family History Unknown Social History <1 pack per day ALCOHOL: none Drugs: None Lives: Care Home Allergies Coded Allergies: [place] (Verified Allergy, Intermediate, 02/10/19) MEDICATIONS: Refer to [facility] REVIEW OF SYSTEMS: Constitutional: No malnutrition, weight loss, cachexia. Head: No traumatic brain or head injury. Skin: No edema, or rash. Ear: No infection. Eyes: No vision loss or color blindness. Nose: No bleeding or purulent discharges. Hearing: Hearing decrease. Neck: No injury. Breast: No history of cancer, masses,or discharges. Cardiac: HTN, HLD. Pulmonary: No COPD. GI: No GI ulcer, GI bleeding. Urinary/genital: ALICIA this time. Endocrinologic: Diabetes Mellitus. Skeletomuscular: No muscular atrophy. Neurological: see HP. Psychiatric: Denies drug use/abuse. Otherwise, not [id number] review of systems. PHYSICAL EXAMINATION: General appearance is in subacute distress. HEENT: Normocephalic and nontraumatic. Eyes, nose, ears, and throat are unremarkable. Neck is supple. No lymphadenopathy. No crepitus. Cardiovascular: S1, S2, regular rate and rhythm. Pulmonary: Clear to auscultation bilaterally. Abdomen: Bowel sounds are positive. Extremities: No rash, lesions, or edema. No restriction of range of motion NEUROLOGICAL EXAMINATION: drowsiness but arousable. Not fully oriented to time, place and person. PERRL. EOMI. CN: no focal findings. Muscle tone: within normal. Muscle strength: 5 DTR: 2 Plantar reflex: Flexor response bilaterally Gait: not examined in bed. Sensory exam: no abnormal findings. No cerebellar signs elicited. F-T-N test fine. Current Medications Current Medications Current Medications Sodium Chloride 1,000 ml @ 1,000 mls/hr 1X ONCE IV Last administered on 10/04/19at 18:39; Start 10/04/19 at 18:15; Stop 10/04/19 at 19:14; Status DC Ondansetron HCl (Zofran) 4 mg 1X ONCE IVP Last administered on 10/04/19at 18:40; Start 10/04/19 at 18:15; Stop 10/04/19 at 18:24; Status DC Acetaminophen (Tylenol) 500 mg PRN Q6HRS PRN PO MILD PAIN / TEMP; Start 10/04/19 at 20:45; Status UNV Acetaminophen/ Codeine Phosphate (Tylenol #3) 1 tab PRN Q6HRS PRN PO MODERATE - SEVERE PAIN; Start 10/04/19 at 20:45 Clonidine HCl (Catapres) 0.1 mg PRN Q1HR PRN PO HYPERTENSION; Start 10/04/19 at 20:45; Stop 10/05/19 at 13:13; Status DC Calcium Carbonate/ Glycine (Tums) 500 mg PRN AFTMEALHC PRN PO INDIGESTION; Start 10/04/19 at 20:45 Ondansetron HCl (Zofran) 4 mg PRN Q6HRS PRN IVP NAUSEA/VOMITING; Start 10/04/19 at 20:45; Stop 10/05/19 at 13:12; Status DC Sodium Chloride 1,000 ml @ 100 mls/hr Q10H IV Last administered on 10/05/19at 13:08; Start 10/04/19 at 20:45 Acetaminophen (Tylenol) 650 mg PRN Q6HRS PRN PO MILD PAIN / TEMP; Start 10/04/19 at 20:45; Stop 10/05/19 at 13:11; Status DC Amlodipine Besylate (Norvasc) 5 mg DAILY PO Last administered on 10/05/19at 09:07; Start 10/05/19 at 09:00 Benztropine Mesylate (Cogentin) 1 mg BID PO Last administered on 10/05/19at 09:03; Start 10/04/19 at 21:00 Gabapentin (Neurontin) 300 mg BID PO Last administered on 10/05/19at 09:04; Start 10/04/19 at 21:00 Haloperidol Lactate (HALDOL 2mg ORAL CONC) 7.5 mg BID PO Last administered on 10/05/19at 09:04; Start 10/04/19 at 21:00 Hydralazine HCl (Apresoline) 25 mg TID PO Last administered on 10/05/19at 13:57; Start 10/04/19 at 21:00 Albuterol/ Ipratropium (Duoneb) 3 ml RTQID NEB Last administered on 10/05/19at 11:38; Start 10/04/19 at 21:00; Stop 10/05/19 at 13:10; Status DC Lisinopril (Prinivil) 60 mg DAILY PO Last administered on 10/05/19at 09:04; Start 10/05/19 at 09:00 Nicotine (Nicoderm Cq 14mg) 1 patch DAILY TD Last administered on 10/05/19at 09:07; Start 10/05/19 at 09:00 Ergocalciferol (Vitamin D2) 50,000 unit WEEKLY PO ; Start 10/11/19 at 09:00 Hydrochlorothiazide (Microzide) 12.5 mg DAILY PO Last administered on 10/05/19at 09:04; Start 10/05/19 at 09:00 Non-Formulary Medication (Nifedipine (Nifedipine Er)) 60 mg DAILY PO ; Start 10/05/19 at 09:00; Status UNV Olanzapine (ZyPREXA) 20 mg QHS PO ; Start 10/04/19 at 21:00 Potassium Chloride (Klor-Con) 20 meq DAILYWBKFT PO Last administered on 10/05/19at 09:04; Start 10/05/19 at 08:00 Trazodone HCl (Desyrel) 150 mg QHS PO ; Start 10/04/19 at 21:00 Pantoprazole Sodium (PROTONIX VIAL for IV PUSH) 40 mg DAILYAC IVP Last administered on 10/05/19at 13:57; Start 10/05/19 at 14:00 Sodium Chloride (Normal Saline Flush) 3 ml QSHIFT PRN IV AFTER MEDS AND BLOOD DRAWS; Start 10/05/19 at 13:15 Ondansetron HCl (Zofran) 4 mg PRN Q4HRS PRN IV NAUSEA/VOMITING; Start 10/05/19 at 13:15 Acetaminophen (Tylenol) 650 mg PRN Q4HRS PRN PO TEMP OVER 100.4F OR MILD PAIN; Start 10/05/19 at 13:15 Al Hydroxide/Mg Hydroxide (Mylanta Plus Xs) 30 ml PRN DAILY PRN PO HEARTBURN / GAS; Start 10/05/19 at 13:15 Clonidine HCl (Catapres) 0.1 mg PRN Q6HRS PRN PO SBP>160 OR DBP>90; Start 10/05/19 at 13:15 Docusate Sodium (Colace) 100 mg PRN BID PRN PO CONSTIPATION; Start 10/05/19 at 13:15 Albuterol/ Ipratropium (Duoneb) 3 ml Q4H NEB ; Start 10/05/19 at 14:00 Guaifenesin (Robitussin) 200 mg PRN Q4HRS PRN PO COUGH; Start 10/05/19 at 13:15 Lorazepam (Ativan) 0.5 mg PRN Q4HRS PRN PO ANXIETY / AGITATION; Start 10/05/19 at 13:15 Active Scripts Active Levaquin (Levofloxacin) 500 Mg Tablet 1 Tab PO DAILY Azithromycin Tablet (Azithromycin) 250 Mg Tablet 250 Mg PO HS Duoneb 0.5-3(2.5) Mg/3 Ml (Albuterol/Ipratropium) 3 Ml Ampul.neb 3 Ml NEB RTQID Reported Vitamin D3 (Cholecalciferol (Vitamin D3)) 50,000 Unit Capsule 50,000 Unit PO WEEKLY Tylenol (Acetaminophen) 325 Mg Tablet 650 Mg PO PRN Q6HRS PRN NICODERM CQ 14mg (Nicotine) 1 Each Patch.td24 1 Patch TP DAILY Gabapentin (Gabapentin) 300 Mg Capsule 300 Mg PO BID Haloperidol Lactate 2 Mg/1 Ml Oral.conc 7.5 Mg PO BID Zyprexa (Olanzapine) 20 Mg Tablet 1 Tab PO QHS Trazodone Hcl 150 Mg Tablet 1 Tab PO QHS Potassium Chloride 10 Meq Tablet.er 20 Meq PO DAILY Norvasc (Amlodipine Besylate) 5 Mg Tablet 5 Mg PO DAILY Nifedipine Er (Nifedipine) 60 Mg Tablet.er 60 Mg PO DAILY Milk Of Magnesia (Magnesium Hydroxide) 2,400 Mg/10 Ml Oral.susp 1,200 Mg PO PRN DAILY PRN Prinivil (Lisinopril) 20 Mg Tablet 60 Mg PO DAILY Hydrochlorothiazide Tablet (Hydrochlorothiazide) 12.5 Mg Tablet 12.5 Mg PO DAILY Hydralazine Hcl 25 Mg Tablet 25 Mg PO TID Benztropine Mesylate 1 Mg Tablet 1 Mg PO BID Allergies Allergies: Allergies Coded Allergies Type Severity Reaction Last Updated Verified lithium Allergy Intermediate 02/10/19 Yes ROS Review of System The patient denies any associated fevers, chills, headache, ear pain, rhinorrhea, sore throat, stiff neck, productive cough, chest pain, shortness of breath, back or flank pain, abdominal pain, nausea, vomiting, diarrhea, constipation, dysuria, rash, numbness, weakness, tingling, incontinence, difficulty ambulating, or diaphoresis. Physical Exam Physical Exam General: Well developed, well nourished, no acute distress, well appearing HEENT: Pupils equally round and reactive to light, EOMI, no discharge, normal conjunctiva Neck: Supple, no nuchal rigidity, no JVD, trachea midline, no tenderness Cardiac: RRR, no murmurs, no gallops, no rubs Chest/Lungs: CTAB, no wheeze, no rhonchi, no crackles Abdomen: soft, non-distended, no guarding, no peritoneal signs, non-tender Back: No tenderness Extremities: no edema, pulses intact, non-tender,capillary refill <3 sec bilateral upper and lower extremities, Neuro: Alert and oriented x 4, no focal deficits, normal speech Vitals Vitals: Vital Signs Date Time Temp Pulse Resp B/P (MAP) Pulse Ox O2 Delivery O2 Flow Rate FiO2 10/05/19 15:00 97.9 89 17 162/72 (102) 96 Room Air 97.9 Labs Labs Laboratory Tests Test 10/04/19 14:35 10/04/19 18:55 10/04/19 21:55 10/05/19 03:50 Influenza Type A Antigen Negative (NEGATIVE) Influenza Type B Antigen Negative (NEGATIVE) White Blood Count 7.2 x10^3/uL (4.0-11.0) 5.7 x10^3/uL (4.0-11.0) Red Blood Count 4.34 x10^6/uL (4.30-5.70) 3.91 x10^6/uL (4.30-5.70) Hemoglobin 11.8 g/dL (13.0-17.5) 10.6 g/dL (13.0-17.5) Hematocrit 35.8 % (39.0-53.0) 32.8 % (39.0-53.0) Mean Corpuscular Volume 83 fL (79-100) 84 fL (79-100) Mean Corpuscular Hemoglobin 27 pg (25-35) 27 pg (25-35) Mean Corpuscular Hemoglobin Concent 33 g/dL (31-37) 32 g/dL (31-37) Red Cell Distribution Width 14.0 % (11.5-14.5) 13.9 % (11.5-14.5) Platelet Count 252 x10^3/uL (140-400) 243 x10^3/uL (140-400) Neutrophils (%) (Auto) 86 % (31-73) 67 % (31-73) Lymphocytes (%) (Auto) 4 % (24-48) 13 % (24-48) Monocytes (%) (Auto) 8 % (0-9) 12 % (0-9) Eosinophils (%) (Auto) 2 % (0-3) 7 % (0-3) Basophils (%) (Auto) 0 % (0-3) 1 % (0-3) Neutrophils # (Auto) 6.2 x10^3/uL (1.8-7.7) 3.8 x10^3/uL (1.8-7.7) Lymphocytes # (Auto) 0.3 x10^3/uL (1.0-4.8) 0.7 x10^3/uL (1.0-4.8) Monocytes # (Auto) 0.6 x10^3/uL (0.0-1.1) 0.7 x10^3/uL (0.0-1.1) Eosinophils # (Auto) 0.1 x10^3/uL (0.0-0.7) 0.4 x10^3/uL (0.0-0.7) Basophils # (Auto) 0.0 x10^3/uL (0.0-0.2) 0.0 x10^3/uL (0.0-0.2) Segmented Neutrophils % 46 % (35-66) Band Neutrophils % 35 % (0-9) Lymphocytes % 6 % (24-48) Monocytes % 11 % (0-10) Eosinophils % 2 % (0-5) Dohle Bodies Present Platelet Estimate Adequate (ADEQUATE) Sodium Level 142 mmol/L (136-145) 143 mmol/L (136-145) Potassium Level 3.6 mmol/L (3.5-5.1) 3.4 mmol/L (3.5-5.1) Chloride Level 103 mmol/L (98-107) 108 mmol/L (98-107) Carbon Dioxide Level 24 mmol/L (21-32) 23 mmol/L (21-32) Anion Gap 15 (6-14) 12 (6-14) Blood Urea Nitrogen 41 mg/dL (8-26) 39 mg/dL (8-26) Creatinine 3.4 mg/dL (0.7-1.3) 3.1 mg/dL (0.7-1.3) Estimated GFR (Cockcroft-Gault) 21.8 24.3 BUN/Creatinine Ratio 12 (6-20) Glucose Level 217 mg/dL (70-99) 120 mg/dL (70-99) Lactic Acid Level 2.6 mmol/L (0.4-2.0) 2.0 mmol/L (0.4-2.0) 1.1 mmol/L (0.4-2.0) Calcium Level 8.7 mg/dL (8.5-10.1) 8.3 mg/dL (8.5-10.1) Total Bilirubin 0.3 mg/dL (0.2-1.0) Aspartate Amino Transf (AST/SGOT) 7 U/L (15-37) Alanine Aminotransferase (ALT/SGPT) 13 U/L (16-63) Alkaline Phosphatase 96 U/L (46-116) Troponin I Quantitative < 0.017 ng/mL (0.000-0.055) Total Protein 7.0 g/dL (6.4-8.2) Albumin 3.3 g/dL (3.4-5.0) Albumin/Globulin Ratio 0.9 (1.0-1.7) Lipase 60 U/L (73-393) Laboratory Tests Test 10/04/19 18:55 10/04/19 21:55 10/05/19 03:50 White Blood Count 7.2 x10^3/uL (4.0-11.0) 5.7 x10^3/uL (4.0-11.0) Red Blood Count 4.34 x10^6/uL (4.30-5.70) 3.91 x10^6/uL (4.30-5.70) Hemoglobin 11.8 g/dL (13.0-17.5) 10.6 g/dL (13.0-17.5) Hematocrit 35.8 % (39.0-53.0) 32.8 % (39.0-53.0) Mean Corpuscular Volume 83 fL (79-100) 84 fL (79-100) Mean Corpuscular Hemoglobin 27 pg (25-35) 27 pg (25-35) Mean Corpuscular Hemoglobin Concent 33 g/dL (31-37) 32 g/dL (31-37) Red Cell Distribution Width 14.0 % (11.5-14.5) 13.9 % (11.5-14.5) Platelet Count 252 x10^3/uL (140-400) 243 x10^3/uL (140-400) Neutrophils (%) (Auto) 86 % (31-73) 67 % (31-73) Lymphocytes (%) (Auto) 4 % (24-48) 13 % (24-48) Monocytes (%) (Auto) 8 % (0-9) 12 % (0-9) Eosinophils (%) (Auto) 2 % (0-3) 7 % (0-3) Basophils (%) (Auto) 0 % (0-3) 1 % (0-3) Neutrophils # (Auto) 6.2 x10^3/uL (1.8-7.7) 3.8 x10^3/uL (1.8-7.7) Lymphocytes # (Auto) 0.3 x10^3/uL (1.0-4.8) 0.7 x10^3/uL (1.0-4.8) Monocytes # (Auto) 0.6 x10^3/uL (0.0-1.1) 0.7 x10^3/uL (0.0-1.1) Eosinophils # (Auto) 0.1 x10^3/uL (0.0-0.7) 0.4 x10^3/uL (0.0-0.7) Basophils # (Auto) 0.0 x10^3/uL (0.0-0.2) 0.0 x10^3/uL (0.0-0.2) Segmented Neutrophils % 46 % (35-66) Band Neutrophils % 35 % (0-9) Lymphocytes % 6 % (24-48) Monocytes % 11 % (0-10) Eosinophils % 2 % (0-5) Dohle Bodies Present Platelet Estimate Adequate (ADEQUATE) Sodium Level 142 mmol/L (136-145) 143 mmol/L (136-145) Potassium Level 3.6 mmol/L (3.5-5.1) 3.4 mmol/L (3.5-5.1) Chloride Level 103 mmol/L (98-107) 108 mmol/L (98-107) Carbon Dioxide Level 24 mmol/L (21-32) 23 mmol/L (21-32) Anion Gap 15 (6-14) 12 (6-14) Blood Urea Nitrogen 41 mg/dL (8-26) 39 mg/dL (8-26) Creatinine 3.4 mg/dL (0.7-1.3) 3.1 mg/dL (0.7-1.3) Estimated GFR (Cockcroft-Gault) 21.8 24.3 BUN/Creatinine Ratio 12 (6-20) Glucose Level 217 mg/dL (70-99) 120 mg/dL (70-99) Lactic Acid Level 2.6 mmol/L (0.4-2.0) 2.0 mmol/L (0.4-2.0) 1.1 mmol/L (0.4-2.0) Calcium Level 8.7 mg/dL (8.5-10.1) 8.3 mg/dL (8.5-10.1) Total Bilirubin 0.3 mg/dL (0.2-1.0) Aspartate Amino Transf (AST/SGOT) 7 U/L (15-37) Alanine Aminotransferase (ALT/SGPT) 13 U/L (16-63) Alkaline Phosphatase 96 U/L (46-116) Troponin I Quantitative < 0.017 ng/mL (0.000-0.055) Total Protein 7.0 g/dL (6.4-8.2) Albumin 3.3 g/dL (3.4-5.0) Albumin/Globulin Ratio 0.9 (1.0-1.7) Lipase 60 U/L (73-393) DAISY PRITCHETT MD Oct 05, 2019 16:58
[2019-10-05] MEDS: ASPIRIN 325 MG TABLET PO SCH (17:00)
[2019-10-05 19:00] VITALS: BP 150/57
[2019-10-05] MEDS: OLANZapine 5 MG TABLET PO SCH (21:00)
[2019-10-05] MEDS ORDERED: ATORVASTATIN CALCIUM 10 MG TABLET. PO SCH (21:00)
[2019-10-05] MEDS: traZODone 50 MG TABLET. PO SCH (21:00)
[2019-10-05 21:36] LABS: BILIRUBIN,URINE NEGATIVE (NEG); CLARITY,URINE CLEAR; COLOR,URINE YELLOW; NITRITE,URINE NEGATIVE (NEG); PROTEIN,URINE NEGATIVE (NEG-TRACE); UROBILINOGEN,URINE 0.2 mg/dL (0.2 mg/dL)
[2019-10-05 21:43] LABS: BACTERIA,URINE 0 /HPF (0-FEW); RBC,URINE 0 /HPF (0-2); WBC,URINE OCC /HPF (0-4)
[2019-10-05 21:44] LABS: HYALINE CASTS, URINE FEW /HPF
--- NOTE | 2019-10-05 21:54 | NUR ---
pt. refused all 2100 meds. All except haloperidol were wasted in waste container.
[2019-10-05 23:00] VITALS: BP 149/72
[2019-10-05 23:11] LABS: AMPHETAMINE/METHAMPHETAMINE NEG (NEG); BARBITURATES NEG (NEG); BENZODIAZEPINES NEG (NEG); CANNABINOIDS NEG (NEG); COCAINE NEG (NEG); METHADONE NEG (NEG); OPIATES NEG (NEG); PHENCYCLIDINE NEG (NEG)
[2019-10-06] MEDS: IPRATRPIUM/ALBUTEROL 0.5/2.5MG 3 ML NEBU. NEB SCH ×3 (02:00→10:00)
[2019-10-06] MEDS: IV NORMAL SALINE 1000ML BAG 1,000 ML IV SCH (02:45)
[2019-10-06 03:00] VITALS: BP 150/77
[2019-10-06] MEDS: PANTOPRAZOLE IV PUSH 40 MG VIAL. IVP SCH (05:55)
[2019-10-06 07:00] VITALS: BP 149/81
[2019-10-06] MEDS: POTASSIUM CHLORIDE 20 MEQ TABLET.ER. PO SCH ×2 (08:00→09:36)
[2019-10-06] MEDS: ASPIRIN 325 MG TABLET PO SCH ×2 (08:00→09:37)
[2019-10-06 08:47] LABS: ALBUMIN 2.9 g/dL (3.4-5.0); ALBUMIN/GLOBULIN RATIO 0.8 (1.0-1.7); CALCIUM 8.5 mg/dL (8.5-10.1); CHOLESTEROL/HDL RATIO 3.3; CREATININE 2.7 mg/dL (0.7-1.3); GFR 28.5; POTASSIUM 3.5 mmol/L (3.5-5.1); TOTAL BILIRUBIN 0.3 mg/dL (0.2-1.0); TOTAL PROTEIN 6.4 g/dL (6.4-8.2)
[2019-10-06] MEDS: NICOTINE 14MG PATCH. TD SCH ×2 (09:00→09:36)
[2019-10-06] MEDS: BENZTROPINE MESYLATE 1 MG TABLET. PO SCH ×2 (09:00→09:37)
[2019-10-06] MEDS: LISINOPRIL 20 MG TABLET PO SCH ×2 (09:00→09:36)
[2019-10-06] MEDS: hydroCHLOROthiazide 12.5 MG CAPSULE PO SCH ×2 (09:00→09:37)
[2019-10-06] MEDS: amLODIPine BESYLATE 5 MG TABLET PO SCH ×2 (09:00→09:37)
[2019-10-06] MEDS: HALOPERIDOL 2 MG/ML ORAL.CONC. PO SCH ×2 (09:00→09:37)
[2019-10-06] MEDS: hydrALAZINE 25 MG TABLET PO SCH ×2 (09:00→09:37)
[2019-10-06] MEDS: GABAPENTIN 300 MG CAPSULE. PO SCH ×2 (09:00→09:36)
--- NOTE | 2019-10-06 09:21 | PDOC ---
SUBJECTIVE ROS No complaints voiced by Pt OBJECTIVE Vital Signs Vital Signs Date Time Temp Pulse Resp B/P (MAP) Pulse Ox O2 Delivery O2 Flow Rate FiO2 10/06/19 07:00 98.2 79 16 149/81 (103) 97 Room Air 98.2 I & 0 Intake and Output 10/06/19 07:00 Intake Total 1640 ml Output Total 500 ml Balance 1140 ml Intake Oral 240 ml IV Total 1400 ml Output Urine Total 500 ml # Voids 3 PHYSICAL EXAM Physical Exam General: No acute distress HEENT: OM moist Neck Supple Lungs- CTA , No use of accessory muscles CV RRR Abdomen: Soft, No tenderness Skin No rash Neuro- defer to Neurologist Extremities: No edema - o CVA or SP tenderness, No Bains DIAGNOSIS/ASSESSMENT Assessment & Plan ALICIA - Baseline Cr normal 05/27/2019 Etiology suspect Pre-renal , improving with IVF UA unremarkable , Renal US pending E-Lytes and acid base stable, Supportive care, IVF,strict I/O, Avoid nephrotoxins Facial droop - Neuro consulted MRI ordered by Neuro Hypokalemia- mild, replace as needed Anemia- per primary HTN- antihypertensives per primary Avoid CHARLEE-/ARB /diuretics UGI BLeed- hematemesis per chart review, GI consulted Pedro RN, no family at bedside COMMENT/RELEVANT DATA Meds Current Medications Medications (Trade) Dose Ordered Sig/Andrés Start Time Stop Time Status Last Admin Dose Admin Acetaminophen (Tylenol) 650 mg PRN Q4HRS PRN 10/05/19 13:15 Acetaminophen/ Codeine Phosphate (Tylenol #3) 1 tab PRN Q6HRS PRN 10/04/19 20:45 Al Hydroxide/Mg Hydroxide (Mylanta Plus Xs) 30 ml PRN DAILY PRN 10/05/19 13:15 Albuterol/ Ipratropium (Duoneb) 3 ml Q4H 10/05/19 14:00 10/05/19 19:34 3 ML Amlodipine Besylate (Norvasc) 5 mg DAILY 10/05/19 09:00 10/05/19 09:07 5 MG Aspirin (Elzbieta Aspirin) 325 mg DAILYWBKFT 10/05/19 17:00 Atorvastatin Calcium (Lipitor) 10 mg QHS 10/05/19 21:00 Benztropine Mesylate (Cogentin) 1 mg BID 10/04/19 21:00 10/05/19 09:03 1 MG Calcium Carbonate/ Glycine (Tums) 500 mg PRN AFTMEALHC PRN 10/04/19 20:45 Clonidine HCl (Catapres) 0.1 mg PRN Q6HRS PRN 10/05/19 13:15 Docusate Sodium (Colace) 100 mg PRN BID PRN 10/05/19 13:15 Ergocalciferol (Vitamin D2) 50,000 unit WEEKLY 10/11/19 09:00 Gabapentin (Neurontin) 300 mg BID 10/04/19 21:00 10/05/19 09:04 300 MG Guaifenesin (Robitussin) 200 mg PRN Q4HRS PRN 10/05/19 13:15 Haloperidol Lactate (HALDOL 2mg ORAL CONC) 7.5 mg BID 10/04/19 21:00 10/05/19 09:04 7.5 MG Hydralazine HCl (Apresoline) 25 mg TID 10/04/19 21:00 10/05/19 13:57 25 MG Hydrochlorothiazide (Microzide) 12.5 mg DAILY 10/05/19 09:00 10/05/19 09:04 12.5 MG Lisinopril (Prinivil) 60 mg DAILY 10/05/19 09:00 10/05/19 09:04 60 MG Lorazepam (Ativan) 0.5 mg PRN Q4HRS PRN 10/05/19 13:15 Nicotine (Nicoderm Cq 14mg) 1 patch DAILY 10/05/19 09:00 10/05/19 09:07 1 PATCH Non-Formulary Medication (Nifedipine (Nifedipine Er)) 60 mg DAILY 10/05/19 09:00 UNV Olanzapine (ZyPREXA) 20 mg QHS 10/04/19 21:00 Ondansetron HCl (Zofran) 4 mg PRN Q4HRS PRN 10/05/19 13:15 Pantoprazole Sodium (PROTONIX VIAL for IV PUSH) 40 mg DAILYAC 10/05/19 14:00 10/06/19 05:55 40 MG Potassium Chloride (Klor-Con) 20 meq DAILYWBKFT 10/05/19 08:00 10/05/19 09:04 20 MEQ Sodium Chloride (Normal Saline Flush) 3 ml QSHIFT PRN 10/05/19 13:15 Trazodone HCl (Desyrel) 150 mg QHS 10/04/19 21:00 Lab Laboratory Tests Test 10/05/19 21:29 10/06/19 08:00 Urine Collection Type Unknown Urine Color Yellow Urine Clarity Clear Urine pH 6.0 Urine Specific [place] 1.010 Urine Protein Negative mg/dL (NEG-TRACE) Urine Glucose (UA) Negative mg/dL (NEG) Urine Ketones (Stick) Negative mg/dL (NEG) Urine Blood Negative (NEG) Urine Nitrite Negative (NEG) Urine Bilirubin Negative (NEG) Urine Urobilinogen Dipstick 0.2 mg/dL (0.2 mg/dL) Urine Leukocyte Esterase Negative (NEG) Urine RBC 0 /HPF (0-2) Urine WBC Occ /HPF (0-4) Urine Bacteria 0 /HPF (0-FEW) Urine Hyaline Casts Few /HPF Urine Opiates Screen Neg (NEG) Urine Methadone Screen Neg (NEG) Urine Barbiturates Neg (NEG) Urine Phencyclidine Screen Neg (NEG) Urine Amphetamine/Methamphetamine Neg (NEG) Urine Benzodiazepines Screen Neg (NEG) Urine Cocaine Screen Neg (NEG) Urine Cannabinoids Screen Neg (NEG) Urine Ethyl Alcohol Neg (NEG) Sodium Level 144 mmol/L (136-145) Potassium Level 3.5 mmol/L (3.5-5.1) Chloride Level 109 mmol/L (98-107) Carbon Dioxide Level 24 mmol/L (21-32) Anion Gap 11 (6-14) Blood Urea Nitrogen 30 mg/dL (8-26) Creatinine 2.7 mg/dL (0.7-1.3) Estimated GFR (Cockcroft-Gault) 28.5 BUN/Creatinine Ratio 11 (6-20) Glucose Level 110 mg/dL (70-99) Calcium Level 8.5 mg/dL (8.5-10.1) Total Bilirubin 0.3 mg/dL (0.2-1.0) Aspartate Amino Transf (AST/SGOT) 9 U/L (15-37) Alanine Aminotransferase (ALT/SGPT) 10 U/L (16-63) Alkaline Phosphatase 78 U/L (46-116) Total Protein 6.4 g/dL (6.4-8.2) Albumin 2.9 g/dL (3.4-5.0) Albumin/Globulin Ratio 0.8 (1.0-1.7) Triglycerides Level 71 mg/dL (0-150) Cholesterol Level 130 mg/dL (0-200) LDL Cholesterol, Calculated 77 mg/dL (0-100) VLDL Cholesterol, Calculated 14 mg/dL (0-40) Non-HDL Cholesterol Calculated 91 mg/dL (0-129) HDL Cholesterol 39 mg/dL (40-60) Cholesterol/HDL Ratio 3.3 Results All relevant outside records, renal labs, imaging studies, telemetry/EKG's were reviewed. PEYMAN CORTES MD Oct 06, 2019 09:21
--- NOTE | 2019-10-06 10:08 | PDOC ---
PROGRESS NOTES Assessment Problems Medical Problems: (1) Acute kidney injury Status: Acute (2) Nausea & vomiting Status: Acute Recurrent right side facial drooping x 2 times since 10/04/19. Metabolic encephalopathy. DM. HTN. ALICIA. Schizophrenia. Plan Await head CT if patient submits to it ASA 325 mg daily. Lipitor HS. Patient declines brain MRI Patient declines neurological examination Treat medical diseases. Okay to return to nursing facility Patient is lucid, has the right to refuse medical treatment Subjective Does not want to talk to me Objective Vital Signs Date Time Temp Pulse Resp B/P (MAP) Pulse Ox O2 Delivery O2 Flow Rate FiO2 10/06/19 07:00 98.2 79 16 149/81 (103) 97 Room Air 98.2 Intake and Output 10/06/19 07:00 Intake Total 1640 ml Output Total 500 ml Balance 1140 ml Intake Oral 240 ml IV Total 1400 ml Output Urine Total 500 ml # Voids 3 PHYSICAL EXAM Patient refuses exam, I see no facial asymmetry. He knows that he is in the hospital, does not know the date Review of Relevant I have reviewed the following items zac (where applicable) has been applied. Labs Laboratory Tests Test 10/04/19 14:35 10/04/19 18:55 10/04/19 21:55 10/05/19 03:50 Influenza Type A Antigen Negative (NEGATIVE) Influenza Type B Antigen Negative (NEGATIVE) White Blood Count 7.2 x10^3/uL (4.0-11.0) 5.7 x10^3/uL (4.0-11.0) Red Blood Count 4.34 x10^6/uL (4.30-5.70) 3.91 x10^6/uL (4.30-5.70) Hemoglobin 11.8 g/dL (13.0-17.5) 10.6 g/dL (13.0-17.5) Hematocrit 35.8 % (39.0-53.0) 32.8 % (39.0-53.0) Mean Corpuscular Volume 83 fL (79-100) 84 fL (79-100) Mean Corpuscular Hemoglobin 27 pg (25-35) 27 pg (25-35) Mean Corpuscular Hemoglobin Concent 33 g/dL (31-37) 32 g/dL (31-37) Red Cell Distribution Width 14.0 % (11.5-14.5) 13.9 % (11.5-14.5) Platelet Count 252 x10^3/uL (140-400) 243 x10^3/uL (140-400) Neutrophils (%) (Auto) 86 % (31-73) 67 % (31-73) Lymphocytes (%) (Auto) 4 % (24-48) 13 % (24-48) Monocytes (%) (Auto) 8 % (0-9) 12 % (0-9) Eosinophils (%) (Auto) 2 % (0-3) 7 % (0-3) Basophils (%) (Auto) 0 % (0-3) 1 % (0-3) Neutrophils # (Auto) 6.2 x10^3/uL (1.8-7.7) 3.8 x10^3/uL (1.8-7.7) Lymphocytes # (Auto) 0.3 x10^3/uL (1.0-4.8) 0.7 x10^3/uL (1.0-4.8) Monocytes # (Auto) 0.6 x10^3/uL (0.0-1.1) 0.7 x10^3/uL (0.0-1.1) Eosinophils # (Auto) 0.1 x10^3/uL (0.0-0.7) 0.4 x10^3/uL (0.0-0.7) Basophils # (Auto) 0.0 x10^3/uL (0.0-0.2) 0.0 x10^3/uL (0.0-0.2) Segmented Neutrophils % 46 % (35-66) Band Neutrophils % 35 % (0-9) Lymphocytes % 6 % (24-48) Monocytes % 11 % (0-10) Eosinophils % 2 % (0-5) Dohle Bodies Present Platelet Estimate Adequate (ADEQUATE) Sodium Level 142 mmol/L (136-145) 143 mmol/L (136-145) Potassium Level 3.6 mmol/L (3.5-5.1) 3.4 mmol/L (3.5-5.1) Chloride Level 103 mmol/L (98-107) 108 mmol/L (98-107) Carbon Dioxide Level 24 mmol/L (21-32) 23 mmol/L (21-32) Anion Gap 15 (6-14) 12 (6-14) Blood Urea Nitrogen 41 mg/dL (8-26) 39 mg/dL (8-26) Creatinine 3.4 mg/dL (0.7-1.3) 3.1 mg/dL (0.7-1.3) Estimated GFR (Cockcroft-Gault) 21.8 24.3 BUN/Creatinine Ratio 12 (6-20) Glucose Level 217 mg/dL (70-99) 120 mg/dL (70-99) Lactic Acid Level 2.6 mmol/L (0.4-2.0) 2.0 mmol/L (0.4-2.0) 1.1 mmol/L (0.4-2.0) Calcium Level 8.7 mg/dL (8.5-10.1) 8.3 mg/dL (8.5-10.1) Total Bilirubin 0.3 mg/dL (0.2-1.0) Aspartate Amino Transf (AST/SGOT) 7 U/L (15-37) Alanine Aminotransferase (ALT/SGPT) 13 U/L (16-63) Alkaline Phosphatase 96 U/L (46-116) Troponin I Quantitative < 0.017 ng/mL (0.000-0.055) Total Protein 7.0 g/dL (6.4-8.2) Albumin 3.3 g/dL (3.4-5.0) Albumin/Globulin Ratio 0.9 (1.0-1.7) Lipase 60 U/L (73-393) Vitamin B12 Level 219 pg/mL (247-911) Thyroid Stimulating Hormone (TSH) 0.280 uIU/mL (0.358-3.74) Test 10/05/19 21:29 10/06/19 08:00 Urine Collection Type Unknown Urine Color Yellow Urine Clarity Clear Urine pH 6.0 Urine Specific [place] 1.010 Urine Protein Negative mg/dL (NEG-TRACE) Urine Glucose (UA) Negative mg/dL (NEG) Urine Ketones (Stick) Negative mg/dL (NEG) Urine Blood Negative (NEG) Urine Nitrite Negative (NEG) Urine Bilirubin Negative (NEG) Urine Urobilinogen Dipstick 0.2 mg/dL (0.2 mg/dL) Urine Leukocyte Esterase Negative (NEG) Urine RBC 0 /HPF (0-2) Urine WBC Occ /HPF (0-4) Urine Bacteria 0 /HPF (0-FEW) Urine Hyaline Casts Few /HPF Urine Opiates Screen Neg (NEG) Urine Methadone Screen Neg (NEG) Urine Barbiturates Neg (NEG) Urine Phencyclidine Screen Neg (NEG) Urine Amphetamine/Methamphetamine Neg (NEG) Urine Benzodiazepines Screen Neg (NEG) Urine Cocaine Screen Neg (NEG) Urine Cannabinoids Screen Neg (NEG) Urine Ethyl Alcohol Neg (NEG) Sodium Level 144 mmol/L (136-145) Potassium Level 3.5 mmol/L (3.5-5.1) Chloride Level 109 mmol/L (98-107) Carbon Dioxide Level 24 mmol/L (21-32) Anion Gap 11 (6-14) Blood Urea Nitrogen 30 mg/dL (8-26) Creatinine 2.7 mg/dL (0.7-1.3) Estimated GFR (Cockcroft-Gault) 28.5 BUN/Creatinine Ratio 11 (6-20) Glucose Level 110 mg/dL (70-99) Calcium Level 8.5 mg/dL (8.5-10.1) Total Bilirubin 0.3 mg/dL (0.2-1.0) Aspartate Amino Transf (AST/SGOT) 9 U/L (15-37) Alanine Aminotransferase (ALT/SGPT) 10 U/L (16-63) Alkaline Phosphatase 78 U/L (46-116) Total Protein 6.4 g/dL (6.4-8.2) Albumin 2.9 g/dL (3.4-5.0) Albumin/Globulin Ratio 0.8 (1.0-1.7) Triglycerides Level 71 mg/dL (0-150) Cholesterol Level 130 mg/dL (0-200) LDL Cholesterol, Calculated 77 mg/dL (0-100) VLDL Cholesterol, Calculated 14 mg/dL (0-40) Non-HDL Cholesterol Calculated 91 mg/dL (0-129) HDL Cholesterol 39 mg/dL (40-60) Cholesterol/HDL Ratio 3.3 Laboratory Tests Test 10/05/19 21:29 10/06/19 08:00 Urine Collection Type Unknown Urine Color Yellow Urine Clarity Clear Urine pH 6.0 Urine Specific [place] 1.010 Urine Protein Negative mg/dL (NEG-TRACE) Urine Glucose (UA) Negative mg/dL (NEG) Urine Ketones (Stick) Negative mg/dL (NEG) Urine Blood Negative (NEG) Urine Nitrite Negative (NEG) Urine Bilirubin Negative (NEG) Urine Urobilinogen Dipstick 0.2 mg/dL (0.2 mg/dL) Urine Leukocyte Esterase Negative (NEG) Urine RBC 0 /HPF (0-2) Urine WBC Occ /HPF (0-4) Urine Bacteria 0 /HPF (0-FEW) Urine Hyaline Casts Few /HPF Urine Opiates Screen Neg (NEG) Urine Methadone Screen Neg (NEG) Urine Barbiturates Neg (NEG) Urine Phencyclidine Screen Neg (NEG) Urine Amphetamine/Methamphetamine Neg (NEG) Urine Benzodiazepines Screen Neg (NEG) Urine Cocaine Screen Neg (NEG) Urine Cannabinoids Screen Neg (NEG) Urine Ethyl Alcohol Neg (NEG) Sodium Level 144 mmol/L (136-145) Potassium Level 3.5 mmol/L (3.5-5.1) Chloride Level 109 mmol/L (98-107) Carbon Dioxide Level 24 mmol/L (21-32) Anion Gap 11 (6-14) Blood Urea Nitrogen 30 mg/dL (8-26) Creatinine 2.7 mg/dL (0.7-1.3) Estimated GFR (Cockcroft-Gault) 28.5 BUN/Creatinine Ratio 11 (6-20) Glucose Level 110 mg/dL (70-99) Calcium Level 8.5 mg/dL (8.5-10.1) Total Bilirubin 0.3 mg/dL (0.2-1.0) Aspartate Amino Transf (AST/SGOT) 9 U/L (15-37) Alanine Aminotransferase (ALT/SGPT) 10 U/L (16-63) Alkaline Phosphatase 78 U/L (46-116) Total Protein 6.4 g/dL (6.4-8.2) Albumin 2.9 g/dL (3.4-5.0) Albumin/Globulin Ratio 0.8 (1.0-1.7) Triglycerides Level 71 mg/dL (0-150) Cholesterol Level 130 mg/dL (0-200) LDL Cholesterol, Calculated 77 mg/dL (0-100) VLDL Cholesterol, Calculated 14 mg/dL (0-40) Non-HDL Cholesterol Calculated 91 mg/dL (0-129) HDL Cholesterol 39 mg/dL (40-60) Cholesterol/HDL Ratio 3.3 Microbiology 1/19/20 Blood Culture - Preliminary, Resulted NO GROWTH AFTER 1 DAY Medications Current Medications Sodium Chloride 1,000 ml @ 1,000 mls/hr 1X ONCE IV Last administered on 10/04/19at 18:39; Start 10/04/19 at 18:15; Stop 10/04/19 at 19:14; Status DC Ondansetron HCl (Zofran) 4 mg 1X ONCE IVP Last administered on 10/04/19at 18:40; Start 10/04/19 at 18:15; Stop 10/04/19 at 18:24; Status DC Acetaminophen (Tylenol) 500 mg PRN Q6HRS PRN PO MILD PAIN / TEMP; Start 10/04/19 at 20:45; Status UNV Acetaminophen/ Codeine Phosphate (Tylenol #3) 1 tab PRN Q6HRS PRN PO MODERATE - SEVERE PAIN; Start 10/04/19 at 20:45 Clonidine HCl (Catapres) 0.1 mg PRN Q1HR PRN PO HYPERTENSION; Start 10/04/19 at 20:45; Stop 10/05/19 at 13:13; Status DC Calcium Carbonate/ Glycine (Tums) 500 mg PRN AFTMEALHC PRN PO INDIGESTION; Start 10/04/19 at 20:45 Ondansetron HCl (Zofran) 4 mg PRN Q6HRS PRN IVP NAUSEA/VOMITING; Start 10/04/19 at 20:45; Stop 10/05/19 at 13:12; Status DC Sodium Chloride 1,000 ml @ 100 mls/hr Q10H IV Last administered on 10/05/19at 21:42; Start 10/04/19 at 20:45 Acetaminophen (Tylenol) 650 mg PRN Q6HRS PRN PO MILD PAIN / TEMP; Start 10/04/19 at 20:45; Stop 10/05/19 at 13:11; Status DC Amlodipine Besylate (Norvasc) 5 mg DAILY PO Last administered on 10/05/19at 09:07; Start 10/05/19 at 09:00 Benztropine Mesylate (Cogentin) 1 mg BID PO Last administered on 10/05/19at 09:03; Start 10/04/19 at 21:00 Gabapentin (Neurontin) 300 mg BID PO Last administered on 10/05/19 09:04; Start 10/04/19 at 21:00 Haloperidol Lactate (HALDOL 2mg ORAL CONC) 7.5 mg BID PO Last administered on 10/05/19at 09:04; Start 10/04/19 at 21:00 Hydralazine HCl (Apresoline) 25 mg TID PO Last administered on 10/05/19 13:57; Start 10/04/19 at 21:00 Albuterol/ Ipratropium (Duoneb) 3 ml RTQID NEB Last administered on 10/05/19at 11:38; Start 10/04/19 at 21:00; Stop 10/05/19 at 13:10; Status DC Lisinopril (Prinivil) 60 mg DAILY PO Last administered on 10/05/19 09:04; Start 10/05/19 at 09:00 Nicotine (Nicoderm Cq 14mg) 1 patch DAILY TD Last administered on 10/05/19 09:07; Start 10/05/19 at 09:00 Ergocalciferol (Vitamin D2) 50,000 unit WEEKLY PO ; Start 10/11/19 at 09:00 Hydrochlorothiazide (Microzide) 12.5 mg DAILY PO Last administered on 10/05/19 09:04; Start 10/05/19 at 09:00 Non-Formulary Medication (Nifedipine (Nifedipine Er)) 60 mg DAILY PO ; Start 10/05/19 at 09:00; Status UNV Olanzapine (ZyPREXA) 20 mg QHS PO ; Start 10/04/19 at 21:00 Potassium Chloride (Klor-Con) 20 meq DAILYWBKFT PO Last administered on 10/05/19at 09:04; Start 10/05/19 at 08:00 Trazodone HCl (Desyrel) 150 mg QHS PO ; Start 10/04/19 at 21:00 Pantoprazole Sodium (PROTONIX VIAL for IV PUSH) 40 mg DAILYAC IVP Last administered on 10/06/19at 05:55; Start 10/05/19 at 14:00 Sodium Chloride (Normal Saline Flush) 3 ml QSHIFT PRN IV AFTER MEDS AND BLOOD DRAWS; Start 10/05/19 at 13:15 Ondansetron HCl (Zofran) 4 mg PRN Q4HRS PRN IV NAUSEA/VOMITING; Start 10/05/19 at 13:15 Acetaminophen (Tylenol) 650 mg PRN Q4HRS PRN PO TEMP OVER 100.4F OR MILD PAIN; Start 10/05/19 at 13:15 Al Hydroxide/Mg Hydroxide (Mylanta Plus Xs) 30 ml PRN DAILY PRN PO HEARTBURN / GAS; Start 10/05/19 at 13:15 Clonidine HCl (Catapres) 0.1 mg PRN Q6HRS PRN PO SBP>160 OR DBP>90; Start 10/05/19 at 13:15 Docusate Sodium (Colace) 100 mg PRN BID PRN PO CONSTIPATION; Start 10/05/19 at 13:15 Albuterol/ Ipratropium (Duoneb) 3 ml Q4H NEB Last administered on 10/05/19at 19:34; Start 10/05/19 at 14:00 Guaifenesin (Robitussin) 200 mg PRN Q4HRS PRN PO COUGH; Start 10/05/19 at 13:15 Lorazepam (Ativan) 0.5 mg PRN Q4HRS PRN PO ANXIETY / AGITATION; Start 10/05/19 at 13:15 Aspirin (Elzbieta Aspirin) 325 mg DAILYWBKFT PO ; Start 10/05/19 at 17:00 Atorvastatin Calcium (Lipitor) 10 mg QHS PO ; Start 10/05/19 at 21:00 Active Scripts Active Levaquin (Levofloxacin) 500 Mg Tablet 1 Tab PO DAILY Azithromycin Tablet (Azithromycin) 250 Mg Tablet 250 Mg PO HS Duoneb 0.5-3(2.5) Mg/3 Ml (Albuterol/Ipratropium) 3 Ml Ampul.neb 3 Ml NEB RTQID Reported Vitamin D3 (Cholecalciferol (Vitamin D3)) 50,000 Unit Capsule 50,000 Unit PO WEEKLY Tylenol (Acetaminophen) 325 Mg Tablet 650 Mg PO PRN Q6HRS PRN NICODERM CQ 14mg (Nicotine) 1 Each Patch.td24 1 Patch TP DAILY Gabapentin (Gabapentin) 300 Mg Capsule 300 Mg PO BID Haloperidol Lactate 2 Mg/1 Ml Oral.conc 7.5 Mg PO BID Zyprexa (Olanzapine) 20 Mg Tablet 1 Tab PO QHS Trazodone Hcl 150 Mg Tablet 1 Tab PO QHS Potassium Chloride 10 Meq Tablet.er 20 Meq PO DAILY Norvasc (Amlodipine Besylate) 5 Mg Tablet 5 Mg PO DAILY Nifedipine Er (Nifedipine) 60 Mg Tablet.er 60 Mg PO DAILY Milk Of Magnesia (Magnesium Hydroxide) 2,400 Mg/10 Ml Oral.susp 1,200 Mg PO PRN DAILY PRN Prinivil (Lisinopril) 20 Mg Tablet 60 Mg PO DAILY Hydrochlorothiazide Tablet (Hydrochlorothiazide) 12.5 Mg Tablet 12.5 Mg PO DAILY Hydralazine Hcl 25 Mg Tablet 25 Mg PO TID Benztropine Mesylate 1 Mg Tablet 1 Mg PO BID Vitals/I & O Vital Sign - Last 24 Hours 10/05/19 10/05/19 10/05/19 10/05/19 11:00 11:39 13:57 15:00 Temp 98.3 97.9 98.3 97.9 Pulse 93 93 89 Resp 18 17 B/P (MAP) 164/70 (101) 164/70 162/72 (102) Pulse Ox 91 93 96 O2 Delivery Room Air Room Air Room Air 10/05/19 10/05/19 10/05/19 10/05/19 19:00 19:35 20:00 21:00 Temp 99.1 99.1 Pulse 90 90 Resp 18 B/P (MAP) 150/57 (88) 150/57 Pulse Ox 91 97 O2 Delivery Room Air Room Air Room Air 10/05/19 10/06/19 10/06/19 23:00 03:00 07:00 Temp 99.0 97.5 98.2 99.0 97.5 98.2 Pulse 84 78 79 Resp 18 18 16 B/P (MAP) 149/72 (97) 150/77 (101) 149/81 (103) Pulse Ox 93 90 97 O2 Delivery Room Air Room Air Room Air Intake and Output 10/05/19 10/05/19 10/06/19 15:00 23:00 07:00 Intake Total 240 ml 1400 ml Output Total 500 ml Balance 240 ml 900 ml JAM FUENTES MD Oct 06, 2019 10:08
--- NOTE | 2019-10-06 10:24 | PDOC2 ---
GI CONSULT Reason For Consult: hematemesis HPI: HPI: 68 y/o male admitted 10/04 w/ facial droop. Has been refusing neuro workup. Other notes indicate reports of hematemesis/coffee-ground emesis at [place] prior to admission. He denies this. Per nurse, no vomiting or bleeding since admission. GI-vaz he denies GERD, "but if I did have it, I'd take Tagamet [id number]." Denies dysphagia, chronic n/v, previous bleeding, abd pain, diarrhea, con stipation, hematochezia, melena, change in appetite, early satiety, or weight loss. No previous EGD or colonoscopy. Denies GB, liver, pancreas, or PUD history. Denies NSAID use. On ASA here - looks like refused this. Also on IV PPI and has been NPO. PMH: PMH: per chart - HTN, DM, schizophrenia FH: Family History: No pertinent hx Social History: Smoke: <1 pack per day ALCOHOL: none Drugs: None ROS: GEN: Denies fevers, chills, sweats HEENT: Denies blurred vision, sore throat CV: Denies chest pain RESP: Denies shortness of air, cough GI: Per HPI : Denies hematuria, dysuria ENDO: Denies weight changes NEURO: Denies confusion, dizziness MSK: Denies weakness, joint pain/swelling SKIN: Denies jaundice, pruritus Vitals: Vitals: Vital Signs Date Time Temp Pulse Resp B/P (MAP) Pulse Ox O2 Delivery O2 Flow Rate FiO2 10/06/19 07:00 98.2 79 16 149/81 (103) 97 Room Air 98.2 Labs: Labs: Laboratory Tests Test 10/05/19 21:29 10/06/19 08:00 Urine Collection Type Unknown Urine Color Yellow Urine Clarity Clear Urine pH 6.0 Urine Specific [place] 1.010 Urine Protein Negative mg/dL (NEG-TRACE) Urine Glucose (UA) Negative mg/dL (NEG) Urine Ketones (Stick) Negative mg/dL (NEG) Urine Blood Negative (NEG) Urine Nitrite Negative (NEG) Urine Bilirubin Negative (NEG) Urine Urobilinogen Dipstick 0.2 mg/dL (0.2 mg/dL) Urine Leukocyte Esterase Negative (NEG) Urine RBC 0 /HPF (0-2) Urine WBC Occ /HPF (0-4) Urine Bacteria 0 /HPF (0-FEW) Urine Hyaline Casts Few /HPF Urine Opiates Screen Neg (NEG) Urine Methadone Screen Neg (NEG) Urine Barbiturates Neg (NEG) Urine Phencyclidine Screen Neg (NEG) Urine Amphetamine/Methamphetamine Neg (NEG) Urine Benzodiazepines Screen Neg (NEG) Urine Cocaine Screen Neg (NEG) Urine Cannabinoids Screen Neg (NEG) Urine Ethyl Alcohol Neg (NEG) Sodium Level 144 mmol/L (136-145) Potassium Level 3.5 mmol/L (3.5-5.1) Chloride Level 109 mmol/L (98-107) Carbon Dioxide Level 24 mmol/L (21-32) Anion Gap 11 (6-14) Blood Urea Nitrogen 30 mg/dL (8-26) Creatinine 2.7 mg/dL (0.7-1.3) Estimated GFR (Cockcroft-Gault) 28.5 BUN/Creatinine Ratio 11 (6-20) Glucose Level 110 mg/dL (70-99) Calcium Level 8.5 mg/dL (8.5-10.1) Total Bilirubin 0.3 mg/dL (0.2-1.0) Aspartate Amino Transf (AST/SGOT) 9 U/L (15-37) Alanine Aminotransferase (ALT/SGPT) 10 U/L (16-63) Alkaline Phosphatase 78 U/L (46-116) Total Protein 6.4 g/dL (6.4-8.2) Albumin 2.9 g/dL (3.4-5.0) Albumin/Globulin Ratio 0.8 (1.0-1.7) Triglycerides Level 71 mg/dL (0-150) Cholesterol Level 130 mg/dL (0-200) LDL Cholesterol, Calculated 77 mg/dL (0-100) VLDL Cholesterol, Calculated 14 mg/dL (0-40) Non-HDL Cholesterol Calculated 91 mg/dL (0-129) HDL Cholesterol 39 mg/dL (40-60) Cholesterol/HDL Ratio 3.3 BLOOD CULTURE Preliminary NO GROWTH AFTER 1 DAY Allergies: Coded Allergies: lithium (Verified Allergy, Intermediate, 02/10/19) Medications: Current Medications Medications (Trade) Dose Ordered Sig/Andrés Route PRN Reason Start Time Stop Time Status Last Admin Dose Admin Pantoprazole Sodium (PROTONIX VIAL for IV PUSH) 40 mg DAILYAC IVP 10/05/19 14:00 10/06/19 05:55 Albuterol/ Ipratropium (Duoneb) 3 ml Q4H NEB 10/05/19 14:00 10/05/19 19:34 Imaging: Imaging: Has declined. PE: GEN: NAD HEENT: Atraumatic, PERRL LUNGS: CTAB HEART: RRR ABD: NABS, S/ND/NT EXTREMITY: No edema SKIN: No rashes, no jaundice NEURO/PSYCH: A & O, odd affect A/P: A/P: Right side facial droop, psych issues ?hematemesis/coffee-ground emesis - possibly prior to admission, details unclear CRC screen - none Chronic anemia, B12 deficiency, ALICIA -- Okay for PO per GI, continue PPI (either IV or PO), add B12, check iron profile. SADIQ AGUILAR Oct 06, 2019 10:24
--- NOTE | 2019-10-06 10:43 | PDOC ---
PROGRESS NOTES History of Present Illness History of Present Illness VTE Prophylaxis Ordered VTE Prophylaxis Devices: No VTE Pharmacological Prophylaxi: Yes discharge dx Assessment/Plan Impression: Acute kidney injury, vasomotor nephropathy DIABETES HYPERTENSION UGI BLEED metabolic encephalopathy, acute Nausea & vomiting, intractable anemia Severe weakness hx schizophrenia tobacco abuse disorder 06/04 Mildly enlarged mediastinal lymph node seen measuring 1.3 x 1.3 cm 10/06 refusing medical treatment AMA, wants to go home today ADMITTED gi consult nephrology consult iv protonix iv fluid support frequent labs scd's dvt prophylaxis neurology following Okay to return to nursing facility Patient is lucid, has the right to refuse medical treatment 26 min pt exam, chart review, d/c planning > 50% of time spent with exam, chart review, pt care coordination Vitals Vitals Vital Signs Date Time Temp Pulse Resp B/P (MAP) Pulse Ox O2 Delivery O2 Flow Rate FiO2 10/06/19 07:00 98.2 79 16 149/81 (103) 97 Room Air 98.2 Physical Exam General: Alert, Oriented X3, Cooperative, No acute distress Lungs: Clear Abdomen: Normal bowel sounds, Soft, No tenderness, No masses Extremities: No clubbing, No cyanosis Labs LABS Laboratory Tests Test 10/05/19 21:29 10/06/19 08:00 Urine Collection Type Unknown Urine Color Yellow Urine Clarity Clear Urine pH 6.0 Urine Specific [place] 1.010 Urine Protein Negative mg/dL (NEG-TRACE) Urine Glucose (UA) Negative mg/dL (NEG) Urine Ketones (Stick) Negative mg/dL (NEG) Urine Blood Negative (NEG) Urine Nitrite Negative (NEG) Urine Bilirubin Negative (NEG) Urine Urobilinogen Dipstick 0.2 mg/dL (0.2 mg/dL) Urine Leukocyte Esterase Negative (NEG) Urine RBC 0 /HPF (0-2) Urine WBC Occ /HPF (0-4) Urine Bacteria 0 /HPF (0-FEW) Urine Hyaline Casts Few /HPF Urine Opiates Screen Neg (NEG) Urine Methadone Screen Neg (NEG) Urine Barbiturates Neg (NEG) Urine Phencyclidine Screen Neg (NEG) Urine Amphetamine/Methamphetamine Neg (NEG) Urine Benzodiazepines Screen Neg (NEG) Urine Cocaine Screen Neg (NEG) Urine Cannabinoids Screen Neg (NEG) Urine Ethyl Alcohol Neg (NEG) Sodium Level 144 mmol/L (136-145) Potassium Level 3.5 mmol/L (3.5-5.1) Chloride Level 109 mmol/L (98-107) Carbon Dioxide Level 24 mmol/L (21-32) Anion Gap 11 (6-14) Blood Urea Nitrogen 30 mg/dL (8-26) Creatinine 2.7 mg/dL (0.7-1.3) Estimated GFR (Cockcroft-Gault) 28.5 BUN/Creatinine Ratio 11 (6-20) Glucose Level 110 mg/dL (70-99) Calcium Level 8.5 mg/dL (8.5-10.1) Total Bilirubin 0.3 mg/dL (0.2-1.0) Aspartate Amino Transf (AST/SGOT) 9 U/L (15-37) Alanine Aminotransferase (ALT/SGPT) 10 U/L (16-63) Alkaline Phosphatase 78 U/L (46-116) Total Protein 6.4 g/dL (6.4-8.2) Albumin 2.9 g/dL (3.4-5.0) Albumin/Globulin Ratio 0.8 (1.0-1.7) Triglycerides Level 71 mg/dL (0-150) Cholesterol Level 130 mg/dL (0-200) LDL Cholesterol, Calculated 77 mg/dL (0-100) VLDL Cholesterol, Calculated 14 mg/dL (0-40) Non-HDL Cholesterol Calculated 91 mg/dL (0-129) HDL Cholesterol 39 mg/dL (40-60) Cholesterol/HDL Ratio 3.3 Assessment and Plan Assessmemt and Plan Problems Medical Problems: (1) Acute kidney injury Status: Acute (2) Nausea & vomiting Status: Acute Comment Review of Relevant I have reviewed the following items zac (where applicable) has been applied. Labs Laboratory Tests Test 10/04/19 14:35 10/04/19 18:55 10/04/19 21:55 10/05/19 03:50 Influenza Type A Antigen Negative (NEGATIVE) Influenza Type B Antigen Negative (NEGATIVE) White Blood Count 7.2 x10^3/uL (4.0-11.0) 5.7 x10^3/uL (4.0-11.0) Red Blood Count 4.34 x10^6/uL (4.30-5.70) 3.91 x10^6/uL (4.30-5.70) Hemoglobin 11.8 g/dL (13.0-17.5) 10.6 g/dL (13.0-17.5) Hematocrit 35.8 % (39.0-53.0) 32.8 % (39.0-53.0) Mean Corpuscular Volume 83 fL (79-100) 84 fL (79-100) Mean Corpuscular Hemoglobin 27 pg (25-35) 27 pg (25-35) Mean Corpuscular Hemoglobin Concent 33 g/dL (31-37) 32 g/dL (31-37) Red Cell Distribution Width 14.0 % (11.5-14.5) 13.9 % (11.5-14.5) Platelet Count 252 x10^3/uL (140-400) 243 x10^3/uL (140-400) Neutrophils (%) (Auto) 86 % (31-73) 67 % (31-73) Lymphocytes (%) (Auto) 4 % (24-48) 13 % (24-48) Monocytes (%) (Auto) 8 % (0-9) 12 % (0-9) Eosinophils (%) (Auto) 2 % (0-3) 7 % (0-3) Basophils (%) (Auto) 0 % (0-3) 1 % (0-3) Neutrophils # (Auto) 6.2 x10^3/uL (1.8-7.7) 3.8 x10^3/uL (1.8-7.7) Lymphocytes # (Auto) 0.3 x10^3/uL (1.0-4.8) 0.7 x10^3/uL (1.0-4.8) Monocytes # (Auto) 0.6 x10^3/uL (0.0-1.1) 0.7 x10^3/uL (0.0-1.1) Eosinophils # (Auto) 0.1 x10^3/uL (0.0-0.7) 0.4 x10^3/uL (0.0-0.7) Basophils # (Auto) 0.0 x10^3/uL (0.0-0.2) 0.0 x10^3/uL (0.0-0.2) Segmented Neutrophils % 46 % (35-66) Band Neutrophils % 35 % (0-9) Lymphocytes % 6 % (24-48) Monocytes % 11 % (0-10) Eosinophils % 2 % (0-5) Dohle Bodies Present Platelet Estimate Adequate (ADEQUATE) Sodium Level 142 mmol/L (136-145) 143 mmol/L (136-145) Potassium Level 3.6 mmol/L (3.5-5.1) 3.4 mmol/L (3.5-5.1) Chloride Level 103 mmol/L (98-107) 108 mmol/L (98-107) Carbon Dioxide Level 24 mmol/L (21-32) 23 mmol/L (21-32) Anion Gap 15 (6-14) 12 (6-14) Blood Urea Nitrogen 41 mg/dL (8-26) 39 mg/dL (8-26) Creatinine 3.4 mg/dL (0.7-1.3) 3.1 mg/dL (0.7-1.3) Estimated GFR (Cockcroft-Gault) 21.8 24.3 BUN/Creatinine Ratio 12 (6-20) Glucose Level 217 mg/dL (70-99) 120 mg/dL (70-99) Lactic Acid Level 2.6 mmol/L (0.4-2.0) 2.0 mmol/L (0.4-2.0) 1.1 mmol/L (0.4-2.0) Calcium Level 8.7 mg/dL (8.5-10.1) 8.3 mg/dL (8.5-10.1) Total Bilirubin 0.3 mg/dL (0.2-1.0) Aspartate Amino Transf (AST/SGOT) 7 U/L (15-37) Alanine Aminotransferase (ALT/SGPT) 13 U/L (16-63) Alkaline Phosphatase 96 U/L (46-116) Troponin I Quantitative < 0.017 ng/mL (0.000-0.055) Total Protein 7.0 g/dL (6.4-8.2) Albumin 3.3 g/dL (3.4-5.0) Albumin/Globulin Ratio 0.9 (1.0-1.7) Lipase 60 U/L (73-393) Vitamin B12 Level 219 pg/mL (247-911) Thyroid Stimulating Hormone (TSH) 0.280 uIU/mL (0.358-3.74) Test 10/05/19 21:29 10/06/19 08:00 Urine Collection Type Unknown Urine Color Yellow Urine Clarity Clear Urine pH 6.0 Urine Specific [place] 1.010 Urine Protein Negative mg/dL (NEG-TRACE) Urine Glucose (UA) Negative mg/dL (NEG) Urine Ketones (Stick) Negative mg/dL (NEG) Urine Blood Negative (NEG) Urine Nitrite Negative (NEG) Urine Bilirubin Negative (NEG) Urine Urobilinogen Dipstick 0.2 mg/dL (0.2 mg/dL) Urine Leukocyte Esterase Negative (NEG) Urine RBC 0 /HPF (0-2) Urine WBC Occ /HPF (0-4) Urine Bacteria 0 /HPF (0-FEW) Urine Hyaline Casts Few /HPF Urine Opiates Screen Neg (NEG) Urine Methadone Screen Neg (NEG) Urine Barbiturates Neg (NEG) Urine Phencyclidine Screen Neg (NEG) Urine Amphetamine/Methamphetamine Neg (NEG) Urine Benzodiazepines Screen Neg (NEG) Urine Cocaine Screen Neg (NEG) Urine Cannabinoids Screen Neg (NEG) Urine Ethyl Alcohol Neg (NEG) Sodium Level 144 mmol/L (136-145) Potassium Level 3.5 mmol/L (3.5-5.1) Chloride Level 109 mmol/L (98-107) Carbon Dioxide Level 24 mmol/L (21-32) Anion Gap 11 (6-14) Blood Urea Nitrogen 30 mg/dL (8-26) Creatinine 2.7 mg/dL (0.7-1.3) Estimated GFR (Cockcroft-Gault) 28.5 BUN/Creatinine Ratio 11 (6-20) Glucose Level 110 mg/dL (70-99) Calcium Level 8.5 mg/dL (8.5-10.1) Total Bilirubin 0.3 mg/dL (0.2-1.0) Aspartate Amino Transf (AST/SGOT) 9 U/L (15-37) Alanine Aminotransferase (ALT/SGPT) 10 U/L (16-63) Alkaline Phosphatase 78 U/L (46-116) Total Protein 6.4 g/dL (6.4-8.2) Albumin 2.9 g/dL (3.4-5.0) Albumin/Globulin Ratio 0.8 (1.0-1.7) Triglycerides Level 71 mg/dL (0-150) Cholesterol Level 130 mg/dL (0-200) LDL Cholesterol, Calculated 77 mg/dL (0-100) VLDL Cholesterol, Calculated 14 mg/dL (0-40) Non-HDL Cholesterol Calculated 91 mg/dL (0-129) HDL Cholesterol 39 mg/dL (40-60) Cholesterol/HDL Ratio 3.3 Laboratory Tests Test 10/05/19 21:29 10/06/19 08:00 Urine Collection Type Unknown Urine Color Yellow Urine Clarity Clear Urine pH 6.0 Urine Specific [place] 1.010 Urine Protein Negative mg/dL (NEG-TRACE) Urine Glucose (UA) Negative mg/dL (NEG) Urine Ketones (Stick) Negative mg/dL (NEG) Urine Blood Negative (NEG) Urine Nitrite Negative (NEG) Urine Bilirubin Negative (NEG) Urine Urobilinogen Dipstick 0.2 mg/dL (0.2 mg/dL) Urine Leukocyte Esterase Negative (NEG) Urine RBC 0 /HPF (0-2) Urine WBC Occ /HPF (0-4) Urine Bacteria 0 /HPF (0-FEW) Urine Hyaline Casts Few /HPF Urine Opiates Screen Neg (NEG) Urine Methadone Screen Neg (NEG) Urine Barbiturates Neg (NEG) Urine Phencyclidine Screen Neg (NEG) Urine Amphetamine/Methamphetamine Neg (NEG) Urine Benzodiazepines Screen Neg (NEG) Urine Cocaine Screen Neg (NEG) Urine Cannabinoids Screen Neg (NEG) Urine Ethyl Alcohol Neg (NEG) Sodium Level 144 mmol/L (136-145) Potassium Level 3.5 mmol/L (3.5-5.1) Chloride Level 109 mmol/L (98-107) Carbon Dioxide Level 24 mmol/L (21-32) Anion Gap 11 (6-14) Blood Urea Nitrogen 30 mg/dL (8-26) Creatinine 2.7 mg/dL (0.7-1.3) Estimated GFR (Cockcroft-Gault) 28.5 BUN/Creatinine Ratio 11 (6-20) Glucose Level 110 mg/dL (70-99) Calcium Level 8.5 mg/dL (8.5-10.1) Total Bilirubin 0.3 mg/dL (0.2-1.0) Aspartate Amino Transf (AST/SGOT) 9 U/L (15-37) Alanine Aminotransferase (ALT/SGPT) 10 U/L (16-63) Alkaline Phosphatase 78 U/L (46-116) Total Protein 6.4 g/dL (6.4-8.2) Albumin 2.9 g/dL (3.4-5.0) Albumin/Globulin Ratio 0.8 (1.0-1.7) Triglycerides Level 71 mg/dL (0-150) Cholesterol Level 130 mg/dL (0-200) LDL Cholesterol, Calculated 77 mg/dL (0-100) VLDL Cholesterol, Calculated 14 mg/dL (0-40) Non-HDL Cholesterol Calculated 91 mg/dL (0-129) HDL Cholesterol 39 mg/dL (40-60) Cholesterol/HDL Ratio 3.3 Microbiology 10/04/19 Blood Culture - Preliminary, Resulted NO GROWTH AFTER 1 DAY Medications Current Medications Sodium Chloride 1,000 ml @ 1,000 mls/hr 1X ONCE IV Last administered on 10/04/19at 18:39; Start 10/04/19 at 18:15; Stop 10/04/19 at 19:14; Status DC Ondansetron HCl (Zofran) 4 mg 1X ONCE IVP Last administered on 10/04/19at 18:40; Start 10/04/19 at 18:15; Stop 10/04/19 at 18:24; Status DC Acetaminophen (Tylenol) 500 mg PRN Q6HRS PRN PO MILD PAIN / TEMP; Start 10/04/19 at 20:45; Status UNV Acetaminophen/ Codeine Phosphate (Tylenol #3) 1 tab PRN Q6HRS PRN PO MODERATE - SEVERE PAIN; Start 10/04/19 at 20:45 Clonidine HCl (Catapres) 0.1 mg PRN Q1HR PRN PO HYPERTENSION; Start 10/04/19 at 20:45; Stop 10/05/19 at 13:13; Status DC Calcium Carbonate/ Glycine (Tums) 500 mg PRN AFTMEALHC PRN PO INDIGESTION; Start 10/04/19 at 20:45 Ondansetron HCl (Zofran) 4 mg PRN Q6HRS PRN IVP NAUSEA/VOMITING; Start 10/04/19 at 20:45; Stop 10/05/19 at 13:12; Status DC Sodium Chloride 1,000 ml @ 100 mls/hr Q10H IV Last administered on 10/05/19at 21:42; Start 10/04/19 at 20:45 Acetaminophen (Tylenol) 650 mg PRN Q6HRS PRN PO MILD PAIN / TEMP; Start 10/04/19 at 20:45; Stop 10/05/19 at 13:11; Status DC Amlodipine Besylate (Norvasc) 5 mg DAILY PO Last administered on 10/05/19at 09:07; Start 10/05/19 at 09:00 Benztropine Mesylate (Cogentin) 1 mg BID PO Last administered on 10/05/19at 09:03; Start 10/04/19 at 21:00 Gabapentin (Neurontin) 300 mg BID PO Last administered on 10/05/19at 09:04; Start 10/04/19 at 21:00 Haloperidol Lactate (HALDOL 2mg ORAL CONC) 7.5 mg BID PO Last administered on 10/05/19at 09:04; Start 10/04/19 at 21:00 Hydralazine HCl (Apresoline) 25 mg TID PO Last administered on 10/05/19at 13:57; Start 10/04/19 at 21:00 Albuterol/ Ipratropium (Duoneb) 3 ml RTQID NEB Last administered on 10/05/19at 11:38; Start 10/04/19 at 21:00; Stop 10/05/19 at 13:10; Status DC Lisinopril (Prinivil) 60 mg DAILY PO Last administered on 10/05/19at 09:04; Start 10/05/19 at 09:00 Nicotine (Nicoderm Cq 14mg) 1 patch DAILY TD Last administered on 10/05/19at 09:07; Start 10/05/19 at 09:00 Ergocalciferol (Vitamin D2) 50,000 unit WEEKLY PO ; Start 10/11/19 at 09:00 Hydrochlorothiazide (Microzide) 12.5 mg DAILY PO Last administered on 10/05/19at 09:04; Start 10/05/19 at 09:00 Non-Formulary Medication (Nifedipine (Nifedipine Er)) 60 mg DAILY PO ; Start 10/05/19 at 09:00; Status UNV Olanzapine (ZyPREXA) 20 mg QHS PO ; Start 10/04/19 at 21:00 Potassium Chloride (Klor-Con) 20 meq DAILYWBKFT PO Last administered on 0at 09:04; Start 10/05/19 at 08:00 Trazodone HCl (Desyrel) 150 mg QHS PO ; Start 10/04/19 at 21:00 Pantoprazole Sodium (PROTONIX VIAL for IV PUSH) 40 mg DAILYAC IVP Last administered on 10/06/19at 05:55; Start 10/05/19 at 14:00 Sodium Chloride (Normal Saline Flush) 3 ml QSHIFT PRN IV AFTER MEDS AND BLOOD DRAWS; Start 10/05/19 at 13:15 Ondansetron HCl (Zofran) 4 mg PRN Q4HRS PRN IV NAUSEA/VOMITING; Start 10/05/19 at 13:15 Acetaminophen (Tylenol) 650 mg PRN Q4HRS PRN PO TEMP OVER 100.4F OR MILD PAIN; Start 10/05/19 at 13:15 Al Hydroxide/Mg Hydroxide (Mylanta Plus Xs) 30 ml PRN DAILY PRN PO HEARTBURN / GAS; Start 10/05/19 at 13:15 Clonidine HCl (Catapres) 0.1 mg PRN Q6HRS PRN PO SBP>160 OR DBP>90; Start 10/05/19 at 13:15 Docusate Sodium (Colace) 100 mg PRN BID PRN PO CONSTIPATION; Start 10/05/19 at 13:15 Albuterol/ Ipratropium (Duoneb) 3 ml Q4H NEB Last administered on 10/05/19at 19:34; Start 10/05/19 at 14:00 Guaifenesin (Robitussin) 200 mg PRN Q4HRS PRN PO COUGH; Start 10/05/19 at 13:15 Lorazepam (Ativan) 0.5 mg PRN Q4HRS PRN PO ANXIETY / AGITATION; Start 10/05/19 at 13:15 Aspirin (Elzbieta Aspirin) 325 mg DAILYWBKFT PO ; Start 10/05/19 at 17:00 Atorvastatin Calcium (Lipitor) 10 mg QHS PO ; Start 10/05/19 at 21:00 Cyanocobalamin (Vitamin B-12) 1,000 mcg DAILY PO ; Start 10/07/19 at 09:00 Active Scripts Active Levaquin (Levofloxacin) 500 Mg Tablet 1 Tab PO DAILY Azithromycin Tablet (Azithromycin) 250 Mg Tablet 250 Mg PO HS Duoneb 0.5-3(2.5) Mg/3 Ml (Albuterol/Ipratropium) 3 Ml Ampul.neb 3 Ml NEB RTQID Reported Vitamin D3 (Cholecalciferol (Vitamin D3)) 50,000 Unit Capsule 50,000 Unit PO WEEKLY Tylenol (Acetaminophen) 325 Mg Tablet 650 Mg PO PRN Q6HRS PRN NICODERM CQ 14mg (Nicotine) 1 Each Patch.td24 1 Patch TP DAILY Gabapentin (Gabapentin) 300 Mg Capsule 300 Mg PO BID Haloperidol Lactate 2 Mg/1 Ml Oral.conc 7.5 Mg PO BID Zyprexa (Olanzapine) 20 Mg Tablet 1 Tab PO QHS Trazodone Hcl 150 Mg Tablet 1 Tab PO QHS Potassium Chloride 10 Meq Tablet.er 20 Meq PO DAILY Norvasc (Amlodipine Besylate) 5 Mg Tablet 5 Mg PO DAILY Nifedipine Er (Nifedipine) 60 Mg Tablet.er 60 Mg PO DAILY Milk Of Magnesia (Magnesium Hydroxide) 2,400 Mg/10 Ml Oral.susp 1,200 Mg PO PRN DAILY PRN Prinivil (Lisinopril) 20 Mg Tablet 60 Mg PO DAILY Hydrochlorothiazide Tablet (Hydrochlorothiazide) 12.5 Mg Tablet 12.5 Mg PO DAILY Hydralazine Hcl 25 Mg Tablet 25 Mg PO TID Benztropine Mesylate 1 Mg Tablet 1 Mg PO BID Vitals/I & O Vital Sign - Last 24 Hours 10/05/19 10/05/19 10/05/19 10/05/19 11:00 11:39 13:57 15:00 Temp 98.3 97.9 98.3 97.9 Pulse 93 93 89 Resp 18 17 B/P (MAP) 164/70 (101) 164/70 162/72 (102) Pulse Ox 91 93 96 O2 Delivery Room Air Room Air Room Air 10/05/19 10/05/19 10/05/19 10/05/19 19:00 19:35 20:00 21:00 Temp 99.1 99.1 Pulse 90 90 Resp 18 B/P (MAP) 150/57 (88) 150/57 Pulse Ox 91 97 O2 Delivery Room Air Room Air Room Air 10/05/19 10/06/19 10/06/19 23:00 03:00 07:00 Temp 99.0 97.5 98.2 99.0 97.5 98.2 Pulse 84 78 79 Resp 18 18 16 B/P (MAP) 149/72 (97) 150/77 (101) 149/81 (103) Pulse Ox 93 90 97 O2 Delivery Room Air Room Air Room Air Intake and Output 10/05/19 10/05/19 10/06/19 15:00 23:00 07:00 Intake Total 240 ml 1400 ml Output Total 500 ml Balance 240 ml 900 ml KAMILA CAVANAUGH MD Oct 06, 2019 10:42
--- NOTE | 2019-10-06 10:56 | NUR ---
AMANDA following. Discussed with RN, AMANDA faxed updates to [facility]. Probable discharge back today. AMANDA will continue to follow. Addendum: 10/06/19 at 1203 by MYA PATEL [facility] will collect pt today at 1245. RN notified.
--- NOTE | 2019-10-06 10:59 | NUR ---
Patient refused MRI/CT also has refused all morning meds as well as PT.
[2019-10-06 11:00] VITALS: BP 162/78
--- NOTE | 2019-10-06 12:00 | PDOC3 ---
Discharge Summary Date of Admission: Oct 04, 2019 Date of Discharge: Oct 06, 2019 Follow-Up: 1-2 days Admitting Diagnosis comment: discharge dx Assessment/Plan Impression: Acute kidney injury, vasomotor nephropathy DIABETES HYPERTENSION UGI BLEED metabolic encephalopathy, acute Nausea & vomiting, intractable anemia Severe weakness hx schizophrenia tobacco abuse disorder 06/04 Mildly enlarged mediastinal lymph node seen measuring 1.3 x 1.3 cm 10/06 refusing medical treatment AMA, wants to go home today d/w RN ADMITTED gi consult nephrology consult iv protonix iv fluid support frequent labs scd's dvt prophylaxis neurology following Okay to return to nursing facility Patient is lucid, has the right to refuse medical treatment 26 min pt exam, chart review, d/c planning > 50% of time spent with exam, chart review, pt care coordination Vitals Vitals Vital Signs Date Time Temp Pulse Resp B/P (MAP) Pulse Ox O2 Delivery O2 Flow Rate FiO2 10/06/19 07:00 98.2 79 16 149/81 (103) 97 Room Air 98.2 Physical Exam General: Alert, Oriented X3, Cooperative, No acute distress Lungs: Clear Abdomen: Normal bowel sounds, Soft, No tenderness, No masses Extremities: No clubbing, No cyanosis FINAL DIAGNOSIS Problems Medical Problems: (1) Acute kidney injury Status: Acute (2) Nausea & vomiting Status: Acute Brief Hospital Course Mr. Orourke is a 68 old [sex] who presented with [ NAUSEA AND VOMITING] CONDITION AT DISCHARGE: Improved Discharge Medications Current Medications Sodium Chloride 1,000 ml @ 1,000 mls/hr 1X ONCE IV Last administered on 10/04/19at 18:39; Start 10/04/19 at 18:15; Stop 10/04/19 at 19:14; Status DC Ondansetron HCl (Zofran) 4 mg 1X ONCE IVP Last administered on 10/04/19at 18:40; Start 10/04/19 at 18:15; Stop 10/04/19 at 18:24; Status DC Acetaminophen (Tylenol) 500 mg PRN Q6HRS PRN PO MILD PAIN / TEMP; Start 10/04/19 at 20:45; Status UNV Acetaminophen/ Codeine Phosphate (Tylenol #3) 1 tab PRN Q6HRS PRN PO MODERATE - SEVERE PAIN; Start 10/04/19 at 20:45 Clonidine HCl (Catapres) 0.1 mg PRN Q1HR PRN PO HYPERTENSION; Start 10/04/19 at 20:45; Stop 10/05/19 at 13:13; Status DC Calcium Carbonate/ Glycine (Tums) 500 mg PRN AFTMEALHC PRN PO INDIGESTION; Start 10/04/19 at 20:45 Ondansetron HCl (Zofran) 4 mg PRN Q6HRS PRN IVP NAUSEA/VOMITING; Start 10/04/19 at 20:45; Stop 10/05/19 at 13:12; Status DC Sodium Chloride 1,000 ml @ 100 mls/hr Q10H IV Last administered on 10/05/19at 21:42; Start 10/04/19 at 20:45 Acetaminophen (Tylenol) 650 mg PRN Q6HRS PRN PO MILD PAIN / TEMP; Start 10/04/19 at 20:45; Stop 10/05/19 at 13:11; Status DC Amlodipine Besylate (Norvasc) 5 mg DAILY PO Last administered on 10/05/19at 09:07; Start 10/05/19 at 09:00 Benztropine Mesylate (Cogentin) 1 mg BID PO Last administered on 10/05/19at 09:03; Start 10/04/19 at 21:00 Gabapentin (Neurontin) 300 mg BID PO Last administered on 10/05/19at 09:04; Start 10/04/19 at 21:00 Haloperidol Lactate (HALDOL 2mg ORAL CONC) 7.5 mg BID PO Last administered on 10/05/19at 09:04; Start 10/04/19 at 21:00 Hydralazine HCl (Apresoline) 25 mg TID PO Last administered on 10/05/19at 13:57; Start 10/04/19 at 21:00 Albuterol/ Ipratropium (Duoneb) 3 ml RTQID NEB Last administered on 10/05/19at 1 1:38; Start 10/04/19 at 21:00; Stop 10/05/19 at 13:10; Status DC Lisinopril (Prinivil) 60 mg DAILY PO Last administered on 10/05/19at 09:04; Start 10/05/19 at 09:00 Nicotine (Nicoderm Cq 14mg) 1 patch DAILY TD Last administered on 10/05/19at 09:07; Start 10/05/19 at 09:00 Ergocalciferol (Vitamin D2) 50,000 unit WEEKLY PO ; Start 10/11/19 at 09:00 Hydrochlorothiazide (Microzide) 12.5 mg DAILY PO Last administered on 10/05/19at 09:04; Start 10/05/19 at 09:00 Non-Formulary Medication (Nifedipine (Nifedipine Er)) 60 mg DAILY PO ; Start 10/05/19 at 09:00; Status UNV Olanzapine (ZyPREXA) 20 mg QHS PO ; Start 10/04/19 at 21:00 Potassium Chloride (Klor-Con) 20 meq DAILYWBKFT PO Last administered on 10/05/19at 09:04; Start 10/05/19 at 08:00 Trazodone HCl (Desyrel) 150 mg QHS PO ; Start 10/04/19 at 21:00 Pantoprazole Sodium (PROTONIX VIAL for IV PUSH) 40 mg DAILYAC IVP Last administered on 10/06/19at 05:55; Start 10/05/19 at 14:00 Sodium Chloride (Normal Saline Flush) 3 ml QSHIFT PRN IV AFTER MEDS AND BLOOD DRAWS; Start 10/05/19 at 13:15 Ondansetron HCl (Zofran) 4 mg PRN Q4HRS PRN IV NAUSEA/VOMITING; Start 10/05/19 at 13:15 Acetaminophen (Tylenol) 650 mg PRN Q4HRS PRN PO TEMP OVER 100.4F OR MILD PAIN; Start 10/05/19 at 13:15 Al Hydroxide/Mg Hydroxide (Mylanta Plus Xs) 30 ml PRN DAILY PRN PO HEARTBURN / GAS; Start 10/05/19 at 13:15 Clonidine HCl (Catapres) 0.1 mg PRN Q6HRS PRN PO SBP>160 OR DBP>90; Start 10/05/19 at 13:15 Docusate Sodium (Colace) 100 mg PRN BID PRN PO CONSTIPATION; Start 10/05/19 at 13:15 Albuterol/ Ipratropium (Duoneb) 3 ml Q4H NEB Last administered on 1/20/20at 19:34; Start 10/05/19 at 14:00 Guaifenesin (Robitussin) 200 mg PRN Q4HRS PRN PO COUGH; Start 10/05/19 at 13:15 Lorazepam (Ativan) 0.5 mg PRN Q4HRS PRN PO ANXIETY / AGITATION; Start 10/05/19 at 13:15 Aspirin (Elzbieta Aspirin) 325 mg DAILYWBKFT PO ; Start 10/05/19 at 17:00 Atorvastatin Calcium (Lipitor) 10 mg QHS PO ; Start 10/05/19 at 21:00 Cyanocobalamin (Vitamin B-12) 1,000 mcg DAILY PO ; Start 10/07/19 at 09:00 Active Scripts Active Levaquin (Levofloxacin) 500 Mg Tablet 1 Tab PO DAILY Azithromycin Tablet (Azithromycin) 250 Mg Tablet 250 Mg PO HS Duoneb 0.5-3(2.5) Mg/3 Ml (Albuterol/Ipratropium) 3 Ml Ampul.neb 3 Ml NEB RTQID Reported Vitamin D3 (Cholecalciferol (Vitamin D3)) 50,000 Unit Capsule 50,000 Unit PO WEEKLY Tylenol (Acetaminophen) 325 Mg Tablet 650 Mg PO PRN Q6HRS PRN NICODERM CQ 14mg (Nicotine) 1 Each Patch.td24 1 Patch TP DAILY Gabapentin (Gabapentin) 300 Mg Capsule 300 Mg PO BID Haloperidol Lactate 2 Mg/1 Ml Oral.conc 7.5 Mg PO BID Zyprexa (Olanzapine) 20 Mg Tablet 1 Tab PO QHS Trazodone Hcl 150 Mg Tablet 1 Tab PO QHS Potassium Chloride 10 Meq Tablet.er 20 Meq PO DAILY Norvasc (Amlodipine Besylate) 5 Mg Tablet 5 Mg PO DAILY Nifedipine Er (Nifedipine) 60 Mg Tablet.er 60 Mg PO DAILY Milk Of Magnesia (Magnesium Hydroxide) 2,400 Mg/10 Ml Oral.susp 1,200 Mg PO PRN DAILY PRN Prinivil (Lisinopril) 20 Mg Tablet 60 Mg PO DAILY Hydrochlorothiazide Tablet (Hydrochlorothiazide) 12.5 Mg Tablet 12.5 Mg PO DAILY Hydralazine Hcl 25 Mg Tablet 25 Mg PO TID Benztropine Mesylate 1 Mg Tablet 1 Mg PO BID Vital Signs Vital Signs Date Time Temp Pulse Resp B/P (MAP) Pulse Ox O2 Delivery O2 Flow Rate FiO2 1/21/20 08:00 Room Air 10/06/19 07:00 98.2 79 16 149/81 (103) 97 98.2 Labs Laboratory Tests Test 10/04/19 14:35 10/04/19 18:55 10/04/19 21:55 10/05/19 03:50 Influenza Type A Antigen Negative (NEGATIVE) Influenza Type B Antigen Negative (NEGATIVE) White Blood Count 7.2 x10^3/uL (4.0-11.0) 5.7 x10^3/uL (4.0-11.0) Red Blood Count 4.34 x10^6/uL (4.30-5.70) 3.91 x10^6/uL (4.30-5.70) Hemoglobin 11.8 g/dL (13.0-17.5) 10.6 g/dL (13.0-17.5) Hematocrit 35.8 % (39.0-53.0) 32.8 % (39.0-53.0) Mean Corpuscular Volume 83 fL (79-100) 84 fL (79-100) Mean Corpuscular Hemoglobin 27 pg (25-35) 27 pg (25-35) Mean Corpuscular Hemoglobin Concent 33 g/dL (31-37) 32 g/dL (31-37) Red Cell Distribution Width 14.0 % (11.5-14.5) 13.9 % (11.5-14.5) Platelet Count 252 x10^3/uL (140-400) 243 x10^3/uL (140-400) Neutrophils (%) (Auto) 86 % (31-73) 67 % (31-73) Lymphocytes (%) (Auto) 4 % (24-48) 13 % (24-48) Monocytes (%) (Auto) 8 % (0-9) 12 % (0-9) Eosinophils (%) (Auto) 2 % (0-3) 7 % (0-3) Basophils (%) (Auto) 0 % (0-3) 1 % (0-3) Neutrophils # (Auto) 6.2 x10^3/uL (1.8-7.7) 3.8 x10^3/uL (1.8-7.7) Lymphocytes # (Auto) 0.3 x10^3/uL (1.0-4.8) 0.7 x10^3/uL (1.0-4.8) Monocytes # (Auto) 0.6 x10^3/uL (0.0-1.1) 0.7 x10^3/uL (0.0-1.1) Eosinophils # (Auto) 0.1 x10^3/uL (0.0-0.7) 0.4 x10^3/uL (0.0-0.7) Basophils # (Auto) 0.0 x10^3/uL (0.0-0.2) 0.0 x10^3/uL (0.0-0.2) Segmented Neutrophils % 46 % (35-66) Band Neutrophils % 35 % (0-9) Lymphocytes % 6 % (24-48) Monocytes % 11 % (0-10) Eosinophils % 2 % (0-5) Dohle Bodies Present Platelet Estimate Adequate (ADEQUATE) Sodium Level 142 mmol/L (136-145) 143 mmol/L (136-145) Potassium Level 3.6 mmol/L (3.5-5.1) 3.4 mmol/L (3.5-5.1) Chloride Level 103 mmol/L (98-107) 108 mmol/L (98-107) Carbon Dioxide Level 24 mmol/L (21-32) 23 mmol/L (21-32) Anion Gap 15 (6-14) 12 (6-14) Blood Urea Nitrogen 41 mg/dL (8-26) 39 mg/dL (8-26) Creatinine 3.4 mg/dL (0.7-1.3) 3.1 mg/dL (0.7-1.3) Estimated GFR (Cockcroft-Gault) 21.8 24.3 BUN/Creatinine Ratio 12 (6-20) Glucose Level 217 mg/dL (70-99) 120 mg/dL (70-99) Lactic Acid Level 2.6 mmol/L (0.4-2.0) 2.0 mmol/L (0.4-2.0) 1.1 mmol/L (0.4-2.0) Calcium Level 8.7 mg/dL (8.5-10.1) 8.3 mg/dL (8.5-10.1) Total Bilirubin 0.3 mg/dL (0.2-1.0) Aspartate Amino Transf (AST/SGOT) 7 U/L (15-37) Alanine Aminotransferase (ALT/SGPT) 13 U/L (16-63) Alkaline Phosphatase 96 U/L (46-116) Troponin I Quantitative < 0.017 ng/mL (0.000-0.055) Total Protein 7.0 g/dL (6.4-8.2) Albumin 3.3 g/dL (3.4-5.0) Albumin/Globulin Ratio 0.9 (1.0-1.7) Lipase 60 U/L (73-393) Vitamin B12 Level 219 pg/mL (247-911) Thyroid Stimulating Hormone (TSH) 0.280 uIU/mL (0.358-3.74) Test 10/05/19 21:29 10/06/19 08:00 Urine Collection Type Unknown Urine Color Yellow Urine Clarity Clear Urine pH 6.0 Urine Specific [place] 1.010 Urine Protein Negative mg/dL (NEG-TRACE) Urine Glucose (UA) Negative mg/dL (NEG) Urine Ketones (Stick) Negative mg/dL (NEG) Urine Blood Negative (NEG) Urine Nitrite Negative (NEG) Urine Bilirubin Negative (NEG) Urine Urobilinogen Dipstick 0.2 mg/dL (0.2 mg/dL) Urine Leukocyte Esterase Negative (NEG) Urine RBC 0 /HPF (0-2) Urine WBC Occ /HPF (0-4) Urine Bacteria 0 /HPF (0-FEW) Urine Hyaline Casts Few /HPF Urine Opiates Screen Neg (NEG) Urine Methadone Screen Neg (NEG) Urine Barbiturates Neg (NEG) Urine Phencyclidine Screen Neg (NEG) Urine Amphetamine/Methamphetamine Neg (NEG) Urine Benzodiazepines Screen Neg (NEG) Urine Cocaine Screen Neg (NEG) Urine Cannabinoids Screen Neg (NEG) Urine Ethyl Alcohol Neg (NEG) Sodium Level 144 mmol/L (136-145) Potassium Level 3.5 mmol/L (3.5-5.1) Chloride Level 109 mmol/L (98-107) Carbon Dioxide Level 24 mmol/L (21-32) Anion Gap 11 (6-14) Blood Urea Nitrogen 30 mg/dL (8-26) Creatinine 2.7 mg/dL (0.7-1.3) Estimated GFR (Cockcroft-Gault) 28.5 BUN/Creatinine Ratio 11 (6-20) Glucose Level 110 mg/dL (70-99) Calcium Level 8.5 mg/dL (8.5-10.1) Iron Level 60 ug/dL (65-175) Total Iron Binding Capacity 269 ug/dL (250-450) Iron Saturation 22 % (15-34) Total Bilirubin 0.3 mg/dL (0.2-1.0) Aspartate Amino Transf (AST/SGOT) 9 U/L (15-37) Alanine Aminotransferase (ALT/SGPT) 10 U/L (16-63) Alkaline Phosphatase 78 U/L (46-116) Total Protein 6.4 g/dL (6.4-8.2) Albumin 2.9 g/dL (3.4-5.0) Albumin/Globulin Ratio 0.8 (1.0-1.7) Triglycerides Level 71 mg/dL (0-150) Cholesterol Level 130 mg/dL (0-200) LDL Cholesterol, Calculated 77 mg/dL (0-100) VLDL Cholesterol, Calculated 14 mg/dL (0-40) Non-HDL Cholesterol Calculated 91 mg/dL (0-129) HDL Cholesterol 39 mg/dL (40-60) Cholesterol/HDL Ratio 3.3 Laboratory Tests Test 10/05/19 21:29 10/06/19 08:00 Urine Collection Type Unknown Urine Color Yellow Urine Clarity Clear Urine pH 6.0 Urine Specific [place] 1.010 Urine Protein Negative mg/dL (NEG-TRACE) Urine Glucose (UA) Negative mg/dL (NEG) Urine Ketones (Stick) Negative mg/dL (NEG) Urine Blood Negative (NEG) Urine Nitrite Negative (NEG) Urine Bilirubin Negative (NEG) Urine Urobilinogen Dipstick 0.2 mg/dL (0.2 mg/dL) Urine Leukocyte Esterase Negative (NEG) Urine RBC 0 /HPF (0-2) Urine WBC Occ /HPF (0-4) Urine Bacteria 0 /HPF (0-FEW) Urine Hyaline Casts Few /HPF Urine Opiates Screen Neg (NEG) Urine Methadone Screen Neg (NEG) Urine Barbiturates Neg (NEG) Urine Phencyclidine Screen Neg (NEG) Urine Amphetamine/Methamphetamine Neg (NEG) Urine Benzodiazepines Screen Neg (NEG) Urine Cocaine Screen Neg (NEG) Urine Cannabinoids Screen Neg (NEG) Urine Ethyl Alcohol Neg (NEG) Sodium Level 144 mmol/L (136-145) Potassium Level 3.5 mmol/L (3.5-5.1) Chloride Level 109 mmol/L (98-107) Carbon Dioxide Level 24 mmol/L (21-32) Anion Gap 11 (6-14) Blood Urea Nitrogen 30 mg/dL (8-26) Creatinine 2.7 mg/dL (0.7-1.3) Estimated GFR (Cockcroft-Gault) 28.5 BUN/Creatinine Ratio 11 (6-20) Glucose Level 110 mg/dL (70-99) Calcium Level 8.5 mg/dL (8.5-10.1) Iron Level 60 ug/dL (65-175) Total Iron Binding Capacity 269 ug/dL (250-450) Iron Saturation 22 % (15-34) Total Bilirubin 0.3 mg/dL (0.2-1.0) Aspartate Amino Transf (AST/SGOT) 9 U/L (15-37) Alanine Aminotransferase (ALT/SGPT) 10 U/L (16-63) Alkaline Phosphatase 78 U/L (46-116) Total Protein 6.4 g/dL (6.4-8.2) Albumin 2.9 g/dL (3.4-5.0) Albumin/Globulin Ratio 0.8 (1.0-1.7) Triglycerides Level 71 mg/dL (0-150) Cholesterol Level 130 mg/dL (0-200) LDL Cholesterol, Calculated 77 mg/dL (0-100) VLDL Cholesterol, Calculated 14 mg/dL (0-40) Non-HDL Cholesterol Calculated 91 mg/dL (0-129) HDL Cholesterol 39 mg/dL (40-60) Cholesterol/HDL Ratio 3.3 Allergies Allergies Coded Allergies Type Severity Reaction Last Updated Verified lithium Allergy Intermediate 02/10/19 Yes Disposition/Orders: Other (D/C TO LTC BED) KAMILA CAVANAUGH MD Oct 06, 2019 12:00
[2019-10-06] MEDS ORDERED: ATOR10TA60 PO (12:04)
[2019-10-06] MEDS ORDERED: DOCU-153 PO (12:04)
[2019-10-06] MEDS ORDERED: CLON0.1T12 PO (12:04)
[2019-10-06] MEDS ORDERED: CYAN-25 PO (12:04)
[2019-10-06] MEDS ORDERED: PANT40TA77 PO (12:04)
--- NOTE | 2019-10-06 12:05 | DISCH ---
DISCHARGE INSTRUCTIONS Condition on Discharge Condition on Discharge: Guarded Activity After Discharge Activity Instructions for Disc: Activity as tolerated Lifting Instructions after Dis: No heavy lifting, No pulling or pushing Exercise Instruction after Dis: Progress as tolerated Driving Instructions after Dis: Do not drive Weight Bearing Status after Di: No restrictions Diet after Discharge Diet after Discharge: Cardiac, Regular Diet Texture: Regular Liquid Texture: Thin Liquid Swallowing Supervision: None needed Checks after Discharge Checks after discharge: Check blood press - daily Contacting the DR. after DC Call your doctor for: If your condition worsens Treatment/Equipment after DC Adaptive Equipment Issued: KAMILA Santa MD Oct 06, 2019 12:05
--- NOTE | 2019-10-06 12:22 | NUR ---
Discharge instructions and report called to [facility]. [phone]. Patient will be escorted out via ambulation by [address] @12:45.
[2019-10-07] MEDS ORDERED: CYANOCOBALAMIN (VITAMIN B-12) 1,000 MCG TABLET. PO SCH (09:00)
[2019-10-11] MEDS ORDERED: ERGOCALCIFEROL (VITAMIN D2) 50,000 UNIT CAPSULE. PO SCH (09:00)
== END 2019-10-06 12:50 | disposition home or self-care (01) | DRG 377 ==
LOC: ER 17:32 → 4 NORTH 19:30
PROVIDERS: ADMIT Internal Medicine; ATTEND Internal Medicine
DX: K92.2 Gastrointestinal hemorrhage, unspecified (principal); N17.0 Acute kidney failure with tubular necrosis; G93.41 Metabolic encephalopathy; D64.9 Anemia, unspecified; E11.9 Type 2 diabetes mellitus without complications; F17.210 Nicotine dependence, cigarettes, uncomplicated; F20.9 Schizophrenia, unspecified; I10 Essential (primary) hypertension; Z79.82 Long term (current) use of aspirin; Z82.49 Family history of ischemic heart disease and other diseases of the circulatory system; Z92.3 Personal history of irradiation
CPT/HCPCS: 36415; 80048; 80053; 80061; 80307; 81001; 82607; 83540; 83550; 83605; 83690; 84443; 84484; 85007; 85025; 87040; 87804; 93005; 94640; C9113; J2405; J7030; J7620; 97110; 97116; 97535; G0378